=== PATIENT | female | born 1950 | race Hispanic/Latino ===

== ENCOUNTER 2017-01-11 11:56 | Emergency (ER) | payer MEDICARE, BC ==
[2017-01-11 12:04] VITALS: TEMP 98.8
[2017-01-11] MEDS ORDERED: Sodium Chloride 0.9% 500 ML IV STA (12:36)
[2017-01-11 12:42] VITALS: BMI 18.1
--- NOTE | 2017-01-11 12:42 | ED PDOC ---
Arrival/HPI - General Time Seen by Provider: 01/11/17 12:35 Historian: Patient - History of Present Illness Narrative History of Present Illness (Text): 01/11/17 12:30 Ofelia Smith is a 66 year old female whose past medical history includes emphysema, presents to the emergency department complaining of diffuse abdominal pain that began three days ago. She reports that she knows she has a hernia that she has elected to not repair. Symptoms are accompanied with diarrhea, nausea, and dysuria for one day. Patient denies chest pain, shortness of breath, fever, chills, cough, vomiting, hematuria, frequency, flank pain, or vaginal discharge. PMD: Dr. Gamez Time/Duration: < week (3 days ago) Symptom Onset: Sudden Symptom Course: Unchanged Associated Symptoms (Text): diarrhea, nausea, headache, and dysuria Past Medical History - Provider Review Nursing Documentation Reviewed: Yes - Infectious Disease Hx of Infectious Diseases: None - Cardiac Hx Pacemaker: No - Pulmonary Hx Chronic Obstructive Pulmonary Disease (COPD): Yes Hx Emphysema: Yes - Neurological Hx Paralysis: No - HEENT Hx HEENT Disorder: No - Renal Hx Renal Disorder: No - Endocrine/Metabolic Hx Endocrine Disorders: No - Hematological/Oncological Hx Blood Transfusions: No - Integumentary Hx Dermatological Disorder: No - Musculoskeletal/Rheumatological Hx Musculoskeletal Disorders: Yes Hx Falls: No - Gastrointestinal Hx Diverticulitis: Yes - Genitourinary/Gynecological Hx Genitourinary Disorders: No - Psychiatric Hx Depression: Yes Hx Emotional Abuse: No Hx Physical Abuse: No Hx Substance Use: No - Anesthesia Hx Anesthesia: Yes Hx Anesthesia Reactions: No Hx Malignant Hyperthermia: No - Suicidal Assessment Feels Threatened In Home Enviroment: No Family/Social History - Physician Review Nursing Documentation Reviewed: Yes Family/Social History: Unknown Family HX Smoking Status: Former Smoker Hx Alcohol Use: No Hx Substance Use: No Allergies/Home Meds Allergies/Adverse Reactions: Allergies No Known Allergies Allergy (Verified 12/20/14 09:30) Home Medications: Home Meds Medication Instructions Recorded Confirmed Desvenlafaxine Succinate [Pristiq] 50 mg PO DAILY 12/20/14 01/11/17 Donepezil HCl 5 mg PO DAILY 12/20/14 01/11/17 Montelukast [Singulair] 10 mg PO DAILY 12/20/14 01/11/17 Alprazolam [Xanax] 0.5 mg PO BID 03/07/16 01/11/17 amLODIPine [Norvasc] 10 mg PO DAILY 03/07/16 01/11/17 Fluticasone/Salmeterol [Advair 1 each IH BID 01/11/17 01/11/17 250-50 Diskus] Umeclidinium [place] [Incruse 62.5 mcg IH DAILY 01/11/17 01/11/17 Ellipta] Review of Systems - Review of Systems Constitutional: absent: Fevers Respiratory: absent: SOB, Cough Cardiovascular: absent: Chest Pain Gastrointestinal: Abdominal Pain, Diarrhea, Nausea. absent: Vomiting Genitourinary Female: Dysuria. absent: Hematuria, Vaginal Bleeding Musculoskeletal: absent: Back Pain Neurological: Headache. absent: Dizziness Physical Exam Vital Signs Reviewed: Yes Vital Signs Temp Pulse Resp BP Pulse Ox 01/11/17 16:06 76 12 122/53 L 96 01/11/17 14:00 77 28 H 105/73 94 L 01/11/17 12:10 76 19 106/73 94 L 01/11/17 12:03 98.8 F 82 18 106/73 100 Temperature: Afebrile Blood Pressure: Normal Pulse: Regular Respiratory Rate: Normal Appearance: Positive for: Well-Appearing, Non-Toxic, Comfortable Pain Distress: None Mental Status: Positive for: Alert and Oriented X 3 - Systems Exam Head: Present: Atraumatic, Normocephalic Pupils: Present: PERRL Extroacular Muscles: Present: EOMI Conjunctiva: Present: Normal Mouth: Present: Moist Mucous Membranes Neck: Present: Normal Range of Motion Respiratory/Chest: Present: Clear to Auscultation, Good Air Exchange. No: Respiratory Distress, Accessory Muscle Use Cardiovascular: Present: Regular Rate and Rhythm, Normal S1, S2. No: Murmurs Abdomen: Present: Normal Bowel Sounds. No: Tenderness, Distention, Peritoneal Signs Upper Extremity: Present: Normal Inspection. No: Cyanosis, Edema Lower Extremity: Present: Normal Inspection. No: Edema Neurological: Present: GCS=15, CN II-XII Intact, Speech Normal Skin: Present: Warm, Dry, Normal Color. No: Rashes Psychiatric: Present: Alert, Oriented x 3, Normal Insight, Normal Concentration Medical Decision Making ED Course and Treatment: 01/11/17 12:30 Impression: 66 year old female wtih diffused abdominal pain, diarrhea, nausea, and dysuria. Plan: -- Labs -- Urinalysis -- Toradol, Sodium Chloride, and Zofran -- Reassess and disposition Prior Visits: Notes and results from previous visits were reviewed. Patient was last seen in the emergency department on Progress Notes: 01/11/17 14:25 CT Abdomen and Pelvis with contrast: Creator : Dr. Irvin, Rob ALLEN COMPARISON: 06/24/2016 FINDINGS: LOWER THORAX: There is a large diaphragmatic hernia measuring 5.2 cm in with seen on coronal image 15. There is herniation of bowel loops into the right side of the chest. There is also a small amount of peritoneal fluid. This is unchanged. LIVER: Unremarkable. No gross lesion or ductal dilatation. GALLBLADDER AND BILE DUCTS: Unremarkable. PANCREAS: Unremarkable. No gross lesion or ductal dilatation. SPLEEN: Unremarkable. ADRENALS: Unremarkable. No mass. KIDNEYS AND URETERS: Unremarkable. No hydronephrosis. No solid mass. VASCULATURE: Unremarkable. No aortic aneurysm. BOWEL: There is some mural thickening and edema in the distal small bowel suspicious for enteritis or inflammatory bowel disease. There is no mesenteric inflammation. APPENDIX: Normal appendix. PERITONEUM: There is a small amount of ascites. LYMPH NODES: Unremarkable. No enlarged lymph nodes. BLADDER: Unremarkable. REPRODUCTIVE: Unremarkable. BONES: No acute fracture. OTHER FINDINGS: None. IMPRESSION: Large anterior right-sided diaphragmatic hernia containing loops of bowel without evidence of obstruction. Finding is unchanged. Mural thickening and edema in the small bowel consistent with enteritis or inflammatory bowel disease. 01/11/17 14:53 Cipro and flagyl ordered. Labs WNL. Reports persistent pain. 01/11/17 15:37 Patient is tolerating po, is afebrile and well appearing and reports that pain has resolved. She reports that she wants to go home. She was given detailed return instructions and reports that she will return with worsening symptoms. - Lab Interpretations Lab Results: 01/11/17 12:58 01/11/17 12:58 Lab Results 01/11/17 14:30: Urine Color Yellow, Urine Appearance Sl cloudy, Urine pH 7.0, Ur Specific [place] <= 1.005, Urine Protein Negative, Urine Glucose (UA) Negative, Urine Ketones Trace H, Urine Blood Moderate H, Urine Nitrate Negative , Urine Bilirubin Negative, Urine Urobilinogen 0.2, Ur Leukocyte Esterase Moderate H, Urine RBC 1 - 3, Urine WBC 1 - 3, Ur Epithelial Cells 1 - 3, Urine Bacteria Trace 01/11/17 12:58: PT 10.6, INR 0.98, APTT 26.5 01/11/17 12:58: Sodium 141, Potassium 3.7, Chloride 103, Carbon Dioxide 29, Anion Gap 13, BUN 14, Creatinine 1.1, Est GFR ( Amer) 60, Est GFR (Non- Af Amer) 49, Random Glucose 85, Calcium 9.5, Phosphorus 3.2, Magnesium 1.9, Total Bilirubin 1.6 H, AST 24, ALT 21, Alkaline Phosphatase 84, Total Protein 6.5, Albumin 3.9, Globulin 2.6, Albumin/Globulin Ratio 1.5, Lipase 39 01/11/17 12:58: WBC 5.3, RBC 4.90, Hgb 14.6, Hct 43.6, MCV 89.0, MCH 29.8, MCHC 33.5, RDW 13.6, Plt Count 217, MPV 9.4, Gran % 66.7, Lymph % (Auto) 24.5, [place] % (Auto) 6.4 H, Eos % (Auto) 1.3 L, Baso % (Auto) 1.1, Gran # 3.53, Lymph # 1.3 , [place] # 0.3, Eos # 0.1, Baso # 0.06 I have reviewed the lab results: Yes - RAD Interpretation Radiology Orders: 01/11/17 13:34 ABD & PELVIS IV CONTRAST ONLY [CT] Stat - Medication Orders Current Medication Orders: Discontinued Medications Ciprofloxacin (Cipro) 500 mg PO ONCE STA PRN Reason: Protocol Stop: 01/11/17 14:25 Last Admin: 01/11/17 14:55 Dose: 500 mg Sodium Chloride (Sodium Chloride 0.9%) 500 mls @ 999 mls/hr IV .Q31M STA Stop: 01/11/17 13:06 Last Admin: 01/11/17 13:09 Dose: 999 mls/hr Iohexol (Omnipaque 350 100 Ml) Confirm Administered Dose 350 mg .ROUTE .STK-MED ONE Stop: 01/11/17 13:41 Ketorolac Tromethamine (Toradol) 30 mg IVP STAT STA Stop: 01/11/17 12:37 Last Admin: 01/11/17 13:11 Dose: 30 mg Metronidazole (Flagyl) 500 mg PO STAT STA PRN Reason: Protocol Stop: 01/11/17 14:25 Last Admin: 01/11/17 14:56 Dose: 500 mg Morphine Sulfate (Morphine) 4 mg IVP STAT STA Stop: 01/11/17 14:47 Last Admin: 01/11/17 14:53 Dose: 4 mg Ondansetron HCl (Zofran Inj) 4 mg IVP STAT STA Stop: 01/11/17 12:37 Last Admin: 01/11/17 13:11 Dose: 4 mg - Scribe Statement The provider has reviewed the documentation as recorded by the Scribe 01/11/2017 Susan Sommers Provider Scribe Attestation: All medical record entries made by the Scribe were at my direction and personally dictated by me. I have reviewed the chart and agree that the record accurately reflects my personal performance of the history, physical exam, medical decision making, and the department course for this patient. I have also personally directed, reviewed, and agree with the discharge instructions and disposition. Disposition/Present on Arrival - Present on Arrival Any Indicators Present on Arrival: No History of DVT/PE: No History of Uncontrolled Diabetes: No Urinary Catheter: No History of Decub. Ulcer: No History Surgical Site Infection Following: None - Disposition Have Diagnosis and Disposition been Completed?: Yes Diagnosis: UTI (urinary tract infection), Enteritis, Inflammatory bowel disease Disposition: HOME/ ROUTINE Disposition Time: 15:37 Patient Plan: Discharge Condition: GOOD Discharge Instructions (ExitCare): Enteritis (ED) Additional Instructions: Take full course of antibiotics. Follow-up with your PMD within 2 days. Return to ED immediately with any worsening symptoms. Prescriptions: Ciprofloxacin [Cipro] 500 mg PO BID #20 tab Metronidazole [Flagyl] 500 mg PO TID #30 tab Referrals: Sanchez Lino MD [Primary Care Provider] - Follow up with primary Forms: [employer] ([place]vian)
[2017-01-11 13:10] LABS: BASO # 0.06 K/mm3 (0.0-2.0); BASO % 1.1 % (0.0-3.0); EOS # 0.1 (0.0-0.7); EOS % 1.3 % (1.5-5.0); GRAN # 3.53 (1.4-6.5); GRAN % 66.7 % (50.0-68.0); HEMATOCRIT 43.6 % (36.0-48.0); LYMPH # 1.3 (1.2-3.4); LYMPH % 24.5 % (22.0-35.0); MEAN CORPUSCULAR HEMOGLOBIN 29.8 pg (25.0-35.0); MEAN CORPUSCULAR HGB CONC 33.5 g/dl (31.0-37.0); MEAN PLATELET VOLUME 9.4 fl (7.0-11.0); MONO # 0.3 (0.1-0.6); MONO % 6.4 % (1.0-6.0); RED CELL DISTRIBUTION WIDTH 13.6 % (11.5-14.5); WHITE BLOOD COUNT 5.3 10^3/ul (4.5-11.0)
[2017-01-11 13:19] LABS: ALB/GLOB RATIO 1.5 (1.1-1.8); BILIRUBIN,TOTAL 1.6 mg/dL (0.2-1.3); CALCIUM 9.5 mg/dL (8.4-10.5); MAGNESIUM 1.9 mg/dL (1.7-2.2); PHOSPHOROUS 3.2 mg/dL (2.5-4.5); POTASSIUM 3.7 mmol/L (3.6-5.0); TOTAL PROTEIN 6.5 g/dL (5.8-8.3)
[2017-01-11 13:25] LABS: INR 0.98 (0.93-1.08); PARTIAL THROMBOPLASTIN TIME 26.5 Seconds (23.7-30.8)
[2017-01-11] MEDS ORDERED: Iohexol 350 MG/100 ML VIAL ONE (13:40)
--- NOTE | 2017-01-11 14:23 | CT ---
PROCEDURE: CT Abdomen and Pelvis with contrast HISTORY: abdominal pain COMPARISON: 06/24/2016 TECHNIQUE: Contrast dose: 100 cc of Omni 350 Radiation dose: Total exam DLP = 171 mGy-cm. This CT exam was performed using one or more of the following dose reduction techniques: Automated exposure control, adjustment of the mA and/or kV according to patient size, and/or use of iterative reconstruction technique. FINDINGS: LOWER THORAX: There is a large diaphragmatic hernia measuring 5.2 cm in with seen on coronal image 15. There is herniation of bowel loops into the right side of the chest. There is also a small amount of peritoneal fluid. This is unchanged. LIVER: Unremarkable. No gross lesion or ductal dilatation. GALLBLADDER AND BILE DUCTS: Unremarkable. PANCREAS: Unremarkable. No gross lesion or ductal dilatation. SPLEEN: Unremarkable. ADRENALS: Unremarkable. No mass. KIDNEYS AND URETERS: Unremarkable. No hydronephrosis. No solid mass. VASCULATURE: Unremarkable. No aortic aneurysm. BOWEL: There is some mural thickening and edema in the distal small bowel suspicious for enteritis or inflammatory bowel disease. There is no mesenteric inflammation. APPENDIX: Normal appendix. PERITONEUM: There is a small amount of ascites. LYMPH NODES: Unremarkable. No enlarged lymph nodes. BLADDER: Unremarkable. REPRODUCTIVE: Unremarkable. BONES: No acute fracture. OTHER FINDINGS: None. IMPRESSION: Large anterior right-sided diaphragmatic hernia containing loops of bowel without evidence of obstruction. Finding is unchanged. Mural thickening and edema in the small bowel consistent with enteritis or inflammatory bowel disease.
[2017-01-11] MEDS ORDERED: Morphine 4 mg/ml ISec IVP STA (14:46)
[2017-01-11 14:55] LABS: URINE APPEARANCE SL CLOUDY (CLEAR); URINE BILIRUBIN NEGATIVE (NEGATIVE); URINE BLOOD MODERATE (NEGATIVE); URINE COLOR YELLOW (YELLOW); URINE GLUCOSE (UA) NEGATIVE (NEGATIVE); URINE KETONE TRACE mg/dL (NEGATIVE); URINE LEUKOCYTE ESTERASE MODERATE Leu/uL (NEGATIVE); URINE PROTEIN NEGATIVE mg/dL (<30 mg/dL); URINE UROBILINOGEN 0.2 E.U./dL (<1 E.U./dL)
[2017-01-11 15:08] LABS: URINE BACTERIA TRACE (NEG)
[2017-01-11 16:07] VITALS: BP 122/53; PULSE 76; RESP 12; O2SAT 96
== END 2017-01-11 16:17 | disposition home or self-care (01) ==
LOC: ED 11:56
DX: K52.9 Noninfective gastroenteritis and colitis, unspecified (principal); N39.0 Urinary tract infection, site not specified
CPT/HCPCS: 74177; 80053; 81001; 83690; 83735; 84100; 85025; 85610; 85730; 87086; 96374; 96375; 99284; J1885; J2270; J2405; J7040; Q9967

== ENCOUNTER 2017-01-15 16:37 | Emergency (ER) | payer MEDICARE, BC ==
[2017-01-15 16:38] VITALS: BMI 18.1
[2017-01-15] MEDS ORDERED: Sodium Chloride 0.9% 500 ML IV STA (16:58)
--- NOTE | 2017-01-15 17:02 | ED PDOC ---
Arrival/HPI - General Chief Complaint: GI Problem Time Seen by Provider: 01/15/17 16:40 Historian: Patient - History of Present Illness Time/Duration: Other (Last night) Symptom Onset: Sudden Symptom Course: Unchanged Severity Level: Mild Associated Symptoms (Text): 01/15/17 16:59 Patient complains of diarrhea which began last night. No blood. No abdominal pain nausea or vomiting. Patient was seen in the emergency department 4 days ago for abdominal pain nausea vomiting and diarrhea and she had a CT scan at that time which showed a chronic hernia and small bowel inflammation. She was begun on Cipro and Flagyl. Her abdominal pain nausea vomiting and diarrhea completely resolved. The diarrhea began again last night. She no longer has abdominal pain nausea vomiting. No genitourinary symptoms. No fever or chills. No injury or trauma. She is chronically ill-appearing, but not toxic. She has continued to take her MiraLAX twice daily. Past Medical History - Infectious Disease Hx of Infectious Diseases: None - Reproductive Menopause: Yes - Cardiac Hx Pacemaker: No - Pulmonary Hx Chronic Obstructive Pulmonary Disease (COPD): Yes Hx Emphysema: Yes - Neurological Hx Paralysis: No - HEENT Hx HEENT Disorder: No - Renal Hx Renal Disorder: No - Endocrine/Metabolic Hx Endocrine Disorders: No - Hematological/Oncological Hx Blood Transfusions: No - Integumentary Hx Dermatological Disorder: No - Musculoskeletal/Rheumatological Hx Musculoskeletal Disorders: Yes Hx Falls: No - Gastrointestinal Hx Diverticulitis: Yes - Genitourinary/Gynecological Hx Genitourinary Disorders: No - Psychiatric Hx Depression: Yes Hx Emotional Abuse: No Hx Physical Abuse: No Hx Substance Use: No - Anesthesia Hx Anesthesia: Yes Hx Anesthesia Reactions: No Hx Malignant Hyperthermia: No - Suicidal Assessment Feels Threatened In Home Enviroment: No Family/Social History - Physician Review Nursing Documentation Reviewed: Yes Family/Social History: Unknown Family HX Smoking Status: Former Smoker Hx Alcohol Use: No Hx Substance Use: No Allergies/Home Meds Allergies/Adverse Reactions: Allergies No Known Allergies Allergy (Verified 12/20/14 09:30) Home Medications: Home Meds Medication Instructions Recorded Confirmed Desvenlafaxine Succinate [Pristiq] 50 mg PO DAILY 12/20/14 01/15/17 Donepezil HCl 5 mg PO DAILY 12/20/14 01/15/17 Montelukast [Singulair] 10 mg PO DAILY 12/20/14 01/15/17 Alprazolam [Xanax] 0.5 mg PO BID 03/07/16 01/15/17 amLODIPine [Norvasc] 10 mg PO DAILY 03/07/16 01/15/17 Fluticasone/Salmeterol [Advair 1 each IH BID 01/11/17 01/15/17 250-50 Diskus] Umeclidinium [place] [Incruse 62.5 mcg IH DAILY 01/11/17 01/15/17 Ellipta] Review of Systems - Physician Review All systems were reviewed & negative as marked: Yes - Review of Systems Constitutional: absent: Fatigue, Fevers Respiratory: Normal Cardiovascular: Normal Gastrointestinal: Normal, Diarrhea. absent: Abdominal Pain, Constipation, Nausea, Vomiting, Anorexia Genitourinary Female: absent: Dysuria, Frequency, Hematuria Skin: Normal Neurological: Normal Physical Exam Vital Signs Temp Pulse Resp BP Pulse Ox 01/15/17 16:39 98.8 F 55 L 16 141/88 97 Temperature: Afebrile Blood Pressure: Normal Pulse: Regular Respiratory Rate: Normal Appearance: Positive for: Well-Appearing, Non-Toxic, Comfortable, Other ( Chronically ill-appearing) Pain Distress: None Mental Status: Positive for: Alert and Oriented X 3 - Systems Exam Head: Present: Atraumatic, Normocephalic Pupils: Present: PERRL Extroacular Muscles: Present: EOMI Conjunctiva: Present: Normal Mouth: Present: Moist Mucous Membranes Pharnyx: No: ERYTHEMA, EXUDATE, TONSILS ENLARGED Neck: Present: Normal Range of Motion Respiratory/Chest: Present: Clear to Auscultation, Good Air Exchange, Decreased Breath Sounds. No: Respiratory Distress, Accessory Muscle Use Cardiovascular: Present: Regular Rate and Rhythm, Normal S1, S2. No: Murmurs Abdomen: Present: Normal Bowel Sounds, Scars. No: Tenderness, Distention, Peritoneal Signs, Rebound, Guarding Upper Extremity: Present: Normal Inspection. No: Cyanosis, Edema Lower Extremity: Present: Normal Inspection. No: Edema Neurological: Present: GCS=15, CN II-XII Intact, Speech Normal, Motor Func Grossly Intact Skin: Present: Warm, Dry, Normal Color. No: Rashes Psychiatric: Present: Alert, Oriented x 3, Normal Insight, Normal Concentration Medical Decision Making - Lab Interpretations Lab Results: 01/15/17 17:11 01/15/17 17:11 Lab Results 01/15/17 17:11: Sodium 137, Potassium 3.4 L, Chloride 98, Carbon Dioxide 27, Anion Gap 15, BUN 9, Creatinine 0.9, Est GFR ( Amer) > 60, Est GFR (Non- Af Amer) > 60, Random Glucose 100, Calcium 9.7, Total Bilirubin 1.0, AST 33, ALT 30, Alkaline Phosphatase 85, Total Protein 7.0, Albumin 4.5, Globulin 2.5, Albumin/Globulin Ratio 1.8 01/15/17 17:11: Urine Color Yellow, Urine Appearance Clear, Urine pH 6.5, Ur Specific [place] 1.015, Urine Protein Negative, Urine Glucose (UA) Negative, Urine Ketones Negative, Urine Blood Small H, Urine Nitrate Negative, Urine Bilirubin Negative, Urine Urobilinogen 0.2, Ur Leukocyte Esterase Negative, Urine RBC 2 - 5, Urine WBC 0 - 2, Ur Epithelial Cells 1 - 3, Urine Bacteria Few , Urine Other Fiber 01/15/17 17:11: PT 10.8, INR 1.00, APTT 25.6 01/15/17 17:11: WBC 5.5, RBC 4.38, Hgb 13.0, Hct 38.7, MCV 88.4, MCH 29.7, MCHC 33.6, RDW 13.0, Plt Count 219, MPV 9.6, Gran % 70.4 H, Lymph % (Auto) 21.9 L, [place] % (Auto) 6.0, Eos % (Auto) 0.4 L, Baso % (Auto) 1.3, Gran # 3.86, Lymph # 1.2, [place] # 0.3, Eos # 0.0, Baso # 0.07 - Medication Orders Current Medication Orders: Discontinued Medications Sodium Chloride (Sodium Chloride 0.9%) 500 mls @ 1,000 mls/hr IV .Q30M STA Stop: 01/15/17 17:27 Last Admin: 01/15/17 17:21 Dose: 1,000 mls/hr Disposition/Present on Arrival - Present on Arrival Any Indicators Present on Arrival: No History of DVT/PE: No History of Uncontrolled Diabetes: No Urinary Catheter: No History of Decub. Ulcer: No History Surgical Site Infection Following: None - Disposition Have Diagnosis and Disposition been Completed?: Yes Diagnosis: Diarrhea, Colitis Disposition: HOME/ ROUTINE Disposition Time: 18:11 Patient Plan: Discharge Condition: GOOD Discharge Instructions (ExitCare): Acute Diarrhea (ED) Additional Instructions: Increase fluids. Follow-up with PMD. Follow up in ER as needed. Referrals: Sanchez Lino MD [Primary Care Provider] - Follow up with primary Forms: [employer] ([place]rainian)
[2017-01-15 17:21] LABS: BASO # 0.07 K/mm3 (0.0-2.0); BASO % 1.3 % (0.0-3.0); EOS % 0.4 % (1.5-5.0); GRAN # 3.86 (1.4-6.5); GRAN % 70.4 % (50.0-68.0); HEMATOCRIT 38.7 % (36.0-48.0); LYMPH # 1.2 (1.2-3.4); LYMPH % 21.9 % (22.0-35.0); MEAN CELL VOLUME 88.4 fl (80.0-105.0); MEAN CORPUSCULAR HEMOGLOBIN 29.7 pg (25.0-35.0); MEAN CORPUSCULAR HGB CONC 33.6 g/dl (31.0-37.0); MEAN PLATELET VOLUME 9.6 fl (7.0-11.0); MONO # 0.3 (0.1-0.6); PH,URINE 6.5 (4.7-8.0); URINE BILIRUBIN NEGATIVE (NEGATIVE); URINE BLOOD SMALL (NEGATIVE); URINE GLUCOSE (UA) NEGATIVE (NEGATIVE); URINE KETONE NEGATIVE (NEGATIVE); URINE LEUKOCYTE ESTERASE NEGATIVE Leu/uL (NEGATIVE); URINE PROTEIN NEGATIVE mg/dL (<30 mg/dL); URINE UROBILINOGEN 0.2 E.U./dL (<1 E.U./dL); WHITE BLOOD COUNT 5.5 10^3/ul (4.5-11.0)
[2017-01-15 17:22] LABS: URINE APPEARANCE CLEAR (CLEAR); URINE COLOR YELLOW (YELLOW)
[2017-01-15 17:24] LABS: URINE BACTERIA FEW (NEG); URINE WBC 0 - 2 /hpf (0-6)
[2017-01-15 17:33] LABS: ALB/GLOB RATIO 1.8 (1.1-1.8); ALKALINE PHOSPHATASE 85 U/L (38-126); ALT/SGPT 30 U/L (7-56); AST/SGOT 33 U/L (14-36); BLOOD UREA NITROGEN 9 mg/dL (7-21); CALCIUM 9.7 mg/dL (8.4-10.5); CARBON DIOXIDE 27 mmol/L (21-33); CHLORIDE 98 mmol/L (98-107); GFR AFRICAN-AMERICAN > 60; GLUCOSE,RANDOM 100 mg/dL (70-110); PARTIAL THROMBOPLASTIN TIME 25.6 Seconds (23.7-30.8); POTASSIUM 3.4 mmol/L (3.6-5.0); SODIUM 137 mmol/L (132-148)
[2017-01-15] MEDS ORDERED: Potassium Chloride 10 mEq ER Tab PO STA (18:10)
[2017-01-15 18:22] VITALS: BP 139/73; PULSE 60; RESP 18; TEMP 98.2; O2SAT 98
== END 2017-01-15 18:22 | disposition home or self-care (01) ==
LOC: ED 16:37
DX: K52.9 Noninfective gastroenteritis and colitis, unspecified (principal); R19.7 Diarrhea, unspecified
CPT/HCPCS: 80053; 81001; 85025; 85610; 85730; 99284; J7040

== ENCOUNTER 2017-02-09 09:00 | Emergency (ER) | payer MEDICARE, BC ==
[2017-02-09 09:00] VITALS: BMI 18.1
[2017-02-09 09:17] VITALS: TEMP 98
--- NOTE | 2017-02-09 09:32 | ED PDOC ---
Arrival/HPI - General Chief Complaint: Abnormal Skin Integrity Time Seen by Provider: 02/09/17 09:14 Historian: Patient - History of Present Illness Narrative History of Present Illness (Text): 02/09/17 09:28 A 66 year old female, whose past medical history includes enteritis, colitis, inflammatory bowel disease, and UTI, presents to the emergency department for bloody diarrhea bowel movement, which occurred earlier this morning after waking up. The patient reports she has had hemorrhoids for the past couple of weeks, but now they have started to bleed. The patient deneis any body pain, abdominal pain, nausea, vomiting, dysuria, chest pain, chest palpitations, or any other complaints at this time.The patient admits to quitting smoking 15 years ago and denies any etoh use. Time/Duration: 4-6 hours Symptom Onset: Sudden Symptom Course: Unchanged Activities at Onset: Rest, Light Context: Home Associated Symptoms (Text): 02/09/17 09:53 Patient complains of a two-week history of hemorrhoids. She had some diarrhea this morning which is chronic in nature. The diarrhea was bloody. No abdominal pain nausea or vomiting. No rectal pain. No dizziness or lightheadedness. No chest pain palpitations or dyspnea. Past Medical History - Provider Review Nursing Documentation Reviewed: Yes - Infectious Disease Hx of Infectious Diseases: None - Cardiac Hx Pacemaker: No - Pulmonary Hx Chronic Obstructive Pulmonary Disease (COPD): Yes Hx Emphysema: Yes - Neurological Hx Paralysis: No - HEENT Hx HEENT Disorder: No - Renal Hx Renal Disorder: No - Endocrine/Metabolic Hx Endocrine Disorders: No - Hematological/Oncological Hx Blood Transfusions: No - Integumentary Hx Dermatological Disorder: No - Musculoskeletal/Rheumatological Hx Musculoskeletal Disorders: Yes Hx Falls: No - Gastrointestinal Hx Diverticulitis: Yes - Genitourinary/Gynecological Hx Genitourinary Disorders: No - Psychiatric Hx Depression: Yes Hx Emotional Abuse: No Hx Physical Abuse: No Hx Substance Use: No - Anesthesia Hx Anesthesia: Yes Hx Anesthesia Reactions: No Hx Malignant Hyperthermia: No - Suicidal Assessment Feels Threatened In Home Enviroment: No Family/Social History - Physician Review Nursing Documentation Reviewed: Yes Family/Social History: No Known Family HX Smoking Status: Former Smoker Hx Alcohol Use: No Hx Substance Use: No Allergies/Home Meds Allergies/Adverse Reactions: Allergies No Known Allergies Allergy (Verified 12/20/14 09:30) Home Medications: Home Meds Medication Instructions Recorded Confirmed Desvenlafaxine Succinate [Pristiq] 50 mg PO DAILY 12/20/14 01/15/17 Donepezil HCl 5 mg PO DAILY 12/20/14 01/15/17 Montelukast [Singulair] 10 mg PO DAILY 12/20/14 01/15/17 Alprazolam [Xanax] 0.5 mg PO BID 03/07/16 01/15/17 amLODIPine [Norvasc] 10 mg PO DAILY 03/07/16 01/15/17 Fluticasone/Salmeterol [Advair 1 each IH BID 01/11/17 01/15/17 250-50 Diskus] Umeclidinium [place] [Incruse 62.5 mcg IH DAILY 01/11/17 01/15/17 Ellipta] Review of Systems - Physician Review All systems were reviewed & negative as marked: Yes - Review of Systems Constitutional: absent: Fatigue, Fevers Respiratory: absent: SOB, Cough, Wheezing Cardiovascular: absent: Chest Pain, Palpitations Gastrointestinal: Diarrhea (bloody ). absent: Abdominal Pain, Nausea, Vomiting Genitourinary Female: absent: Dysuria Musculoskeletal: absent: Back Pain, Neck Pain Neurological: absent: Headache, Dizziness, Focal Weakness Physical Exam Vital Signs Reviewed: Yes Vital Signs Temp Pulse Resp BP Pulse Ox 02/09/17 10:49 80 20 115/69 02/09/17 10:15 84 20 115/69 94 L 02/09/17 09:00 98.0 F 84 18 138/69 96 Temperature: Afebrile Blood Pressure: Normal Pulse: Regular Respiratory Rate: Normal Appearance: Positive for: Well-Appearing, Non-Toxic, Comfortable, Other ( Cachectic) Pain Distress: None Mental Status: Positive for: Alert and Oriented X 3 - Systems Exam Head: Present: Atraumatic, Normocephalic Pupils: Present: PERRL Extroacular Muscles: Present: EOMI Conjunctiva: Present: Normal Mouth: Present: Moist Mucous Membranes Pharnyx: No: ERYTHEMA, EXUDATE, TONSILS ENLARGED Neck: Present: Normal Range of Motion Respiratory/Chest: Present: Clear to Auscultation, Good Air Exchange. No: Respiratory Distress, Accessory Muscle Use Cardiovascular: Present: Regular Rate and Rhythm, Normal S1, S2. No: Murmurs Abdomen: Present: Normal Bowel Sounds. No: Tenderness, Distention, Peritoneal Signs, Rebound, Guarding Rectal: Present: Occult Blood, Hemorrhoids (small external non-thrombosed hemorrhoids), Normal Rectal Tone, Other (trace guaiac positive). No: Rectal Tenderness, Gross Blood, Melena, Fissures, Nodule/Mass/Lesions Back: Present: Normal Inspection Upper Extremity: Present: Normal Inspection. No: Cyanosis, Edema Lower Extremity: Present: Normal Inspection. No: Edema Neurological: Present: GCS=15, CN II-XII Intact, Speech Normal, Motor Func Grossly Intact Skin: Present: Warm, Dry, Normal Color. No: Rashes Psychiatric: Present: Alert, Oriented x 3, Normal Insight, Normal Concentration Medical Decision Making ED Course and Treatment: 02/09/17 09:33 Impression: A 66 year old female with bloody diarrhea. Differential Diagnosis included but are not limited to: Plan: -- EKG -- Labs -- Reassess and disposition Progress Notes: 02/09/17 10:12 EKG shows normal sinus rhythm rate approximately 80 with multifocal PVCs and no acute ST or T-wave changes 02/09/17 10:36 Discussed in detail with , who will follow up as an outpatient. Patient's hemoglobin is fine. Her INR is normal. I believe that this bleeding is from her hemorrhoids. She will be treated with Anusol and follow-up with Dr. Lino in 2 days. Follow-up in the ER as needed. - Lab Interpretations Lab Results: 02/09/17 09:45 02/09/17 09:45 Lab Results 02/09/17 09:45: Blood Type O POSITIVE, Antibody Screen Negative, BBK History Checked No verified bt 02/09/17 09:45: Sodium 144, Potassium 3.8, Chloride 105, Carbon Dioxide 28, Anion Gap 15, BUN 10, Creatinine 0.9, Est GFR ( Amer) > 60, Est GFR (Non- Af Amer) > 60, Random Glucose 72, Calcium 9.7, Total Bilirubin 1.0, AST 25, ALT 22, Alkaline Phosphatase 81, Lactate Dehydrogenase 603, Total Creatine Kinase 88 , Troponin I < 0.01, Total Protein 6.6, Albumin 4.0, Globulin 2.7, Albumin/ Globulin Ratio 1.5, Amylase 107, Lipase 135 02/09/17 09:45: PT 10.4, INR 0.96, APTT 26.8 02/09/17 09:45: WBC 6.2, RBC 4.78, Hgb 14.1, Hct 42.2, MCV 88.3, MCH 29.5, MCHC 33.4, RDW 13.8, Plt Count 300, MPV 9.4, Gran % 61.3, Lymph % (Auto) 20.0 L, [place] % (Auto) 7.8 H, Eos % (Auto) 9.4 H, Baso % (Auto) 1.5, Gran # 3.80, Lymph # 1.2, [place] # 0.5, Eos # 0.6, Baso # 0.09 - Scribe Statement The provider has reviewed the documentation as recorded by the Scribe Taniya Acharya Provider Scribe Attestation: All medical record entries made by the Scribe were at my direction and personally dictated by me. I have reviewed the chart and agree that the record accurately reflects my personal performance of the history, physical exam, medical decision making, and the department course for this patient. I have also personally directed, reviewed, and agree with the discharge instructions and disposition. Disposition/Present on Arrival - Present on Arrival Any Indicators Present on Arrival: No History of DVT/PE: No History of Uncontrolled Diabetes: No Urinary Catheter: No History of Decub. Ulcer: No History Surgical Site Infection Following: None - Disposition Have Diagnosis and Disposition been Completed?: Yes Diagnosis: Diarrhea, Bleeding external hemorrhoids Disposition: HOME/ ROUTINE Disposition Time: 10:37 Patient Plan: Discharge Condition: GOOD Discharge Instructions (ExitCare): Hemorrhoids (ED), Rectal Bleeding (ED) Additional Instructions: Keep bowels soft. Follow-up with PMD. Follow up in ER as needed. Prescriptions: Hard Fat/Phenylephrine [place] [Hemorrhoidal 88.7%-0.25%] 1 sup TN BID #14 sup Hydrocortisone 2.5% (Rectal) [Anusol-HC] 30 applic TN BID #1 tube Referrals: PCP,NO [Primary Care Provider] - Follow up with primary Sanchez Lino MD [Staff Provider] - Follow up with primary Forms: [employer] (Kyrgyz)
[2017-02-09 10:04] LABS: BASO # 0.09 K/mm3 (0.0-2.0); BASO % 1.5 % (0.0-3.0); EOS # 0.6 (0.0-0.7); EOS % 9.4 % (1.5-5.0); GRAN # 3.8 (1.4-6.5); GRAN % 61.3 % (50.0-68.0); HEMATOCRIT 42.2 % (36.0-48.0); LYMPH # 1.2 (1.2-3.4); MEAN CELL VOLUME 88.3 fl (80.0-105.0); MEAN CORPUSCULAR HEMOGLOBIN 29.5 pg (25.0-35.0); MEAN CORPUSCULAR HGB CONC 33.4 g/dl (31.0-37.0); MEAN PLATELET VOLUME 9.4 fl (7.0-11.0); MONO # 0.5 (0.1-0.6); MONO % 7.8 % (1.0-6.0); RED CELL DISTRIBUTION WIDTH 13.8 % (11.5-14.5); WHITE BLOOD COUNT 6.2 10^3/ul (4.5-11.0)
[2017-02-09 10:14] LABS: ALB/GLOB RATIO 1.5 (1.1-1.8); ALKALINE PHOSPHATASE 81 U/L (38-126); ALT/SGPT 22 U/L (7-56); AMYLASE 107 U/L (35-125); AST/SGOT 25 U/L (14-36); BLOOD UREA NITROGEN 10 mg/dL (7-21); CALCIUM 9.7 mg/dL (8.4-10.5); CARBON DIOXIDE 28 mmol/L (21-33); CHLORIDE 105 mmol/L (98-107); GFR AFRICAN-AMERICAN > 60; GLUCOSE,RANDOM 72 mg/dL (70-110); INR 0.96 (0.93-1.08); LIPASE 135 U/L (23-300); PARTIAL THROMBOPLASTIN TIME 26.8 Seconds (23.7-30.8); POTASSIUM 3.8 mmol/L (3.6-5.0); SODIUM 144 mmol/L (132-148); TOTAL PROTEIN 6.6 g/dL (5.8-8.3)
[2017-02-09 10:21] VITALS: BP 115/69; RESP 20; O2SAT 94
[2017-02-09 10:26] LABS: TROPONIN I < 0.01 ng/mL
[2017-02-09 10:50] VITALS: PULSE 80
--- NOTE | 2017-02-09 14:28 | CARD ---
APPROVED REPORT EKG Measurement Heart [id number] <Conclusion> Sinus rhythm with frequent premature ventricular complexes Nonspecific ST and T wave abnormality
== END 2017-02-09 10:55 | disposition home or self-care (01) ==
LOC: ED 09:00
DX: K64.4 Residual hemorrhoidal skin tags (principal); R19.7 Diarrhea, unspecified

== ENCOUNTER 2017-02-11 17:22 | Inpatient (IN) | payer MEDICARE, BC ==
--- NOTE | 2017-02-11 17:47 | ED PDOC ---
Arrival/HPI - General Chief Complaint: Altered Mental Status Time Seen by Provider: 02/11/17 17:26 Historian: Patient, Family - History of Present Illness Narrative History of Present Illness (Text): 02/11/17 17:46 A 66 year old female was brought into the emergency department by family for altered mental status. Family complains of increased confusion and agitation. Granddaughter reports when she arrived home patient was naked trying to put on a trash bag and notes she urinated and defecated on the floor. She states she could not make sense of what the patient was trying to say. Patient denies any complaints at this time. ROS limited due to patients state. Time/Duration: Prior to Arrival Context: Home Past Medical History - Provider Review Nursing Documentation Reviewed: Yes - Infectious Disease Hx of Infectious Diseases: None - Cardiac Hx Cardiac Disorders: Yes Hx Hypertension: Yes Hx Pacemaker: No - Pulmonary Hx Respiratory Disorders: Yes Hx Chronic Obstructive Pulmonary Disease (COPD): Yes Hx Emphysema: Yes - Neurological Hx Neurological Disorder: Yes Hx Dementia: Yes Hx Paralysis: No - HEENT Hx HEENT Disorder: No - Renal Hx Renal Disorder: No - Endocrine/Metabolic Hx Endocrine Disorders: No - Hematological/Oncological Hx Blood Transfusions: No - Integumentary Hx Dermatological Disorder: No - Musculoskeletal/Rheumatological Hx Musculoskeletal Disorders: Yes Hx Falls: No - Gastrointestinal Hx Gastrointestinal Disorders: Yes Hx Diverticulitis: Yes - Genitourinary/Gynecological Hx Genitourinary Disorders: No - Psychiatric Hx Psychophysiologic Disorder: Yes Hx Anxiety: Yes Hx Depression: Yes Hx Emotional Abuse: No Hx Physical Abuse: No Hx Substance Use: No - Anesthesia Hx Anesthesia: Yes Hx Anesthesia Reactions: No Hx Malignant Hyperthermia: No - Suicidal Assessment Feels Threatened In Home Enviroment: No Family/Social History - Physician Review Nursing Documentation Reviewed: Yes Family/Social History: No Known Family HX Smoking Status: Former Smoker Hx Alcohol Use: No Hx Substance Use: No Allergies/Home Meds Allergies/Adverse Reactions: Allergies No Known Allergies Allergy (Verified 02/11/17 17:40) Home Medications: Home Meds Medication Instructions Recorded Confirmed Donepezil HCl 5 mg PO DAILY 12/20/14 02/11/17 Montelukast [Singulair] 10 mg PO DAILY 12/20/14 02/11/17 Alprazolam [Xanax] 0.5 mg PO BID 03/07/16 02/11/17 amLODIPine [Norvasc] 10 mg PO DAILY 03/07/16 02/11/17 Alprazolam [Xanax] 1 tab PO HS PRN 02/11/17 02/11/17 Desvenlafaxine Succinate [Pristiq] 50 mg PO DAILY 02/11/17 02/11/17 Review of Systems - Review of Systems Systems not reviewed;Unavailable: Altered Mental Status Physical Exam Vital Signs Reviewed: Yes Vital Signs Temp Pulse Resp BP Pulse Ox 02/11/17 20:26 81 18 116/66 96 02/11/17 17:50 99.4 F 89 18 115/45 L 96 Temperature: Afebrile Blood Pressure: Normal Pulse: Regular Respiratory Rate: Normal Appearance: Positive for: Non-Toxic, Comfortable, Cachectic Pain Distress: None Mental Status: Positive for: Confused (Alert and oriented times person and place only) - Systems Exam Head: Present: Atraumatic, Normocephalic Pupils: Present: PERRL Extroacular Muscles: Present: EOMI Conjunctiva: Present: Normal Mouth: Present: Moist Mucous Membranes Neck: Present: Normal Range of Motion Respiratory/Chest: Present: Clear to Auscultation, Good Air Exchange. No: Respiratory Distress, Accessory Muscle Use Cardiovascular: Present: Regular Rate and Rhythm, Normal S1, S2. No: Murmurs Abdomen: Present: Normal Bowel Sounds. No: Tenderness, Distention, Peritoneal Signs Back: Present: Normal Inspection Upper Extremity: Present: Normal Inspection. No: Cyanosis, Edema Lower Extremity: Present: Normal Inspection. No: Edema Neurological: Present: GCS=15, CN II-XII Intact, Speech Normal Skin: Present: Warm, Dry, Normal Color. No: Rashes Psychiatric: Present: Alert. No: Oriented x 3 (Oriented times person and place only, not time) Medical Decision Making ED Course and Treatment: 02/11/17 17:46 Impression: A 66 year old female brought in for altered mental status Plan: -- Head CT -- Chest xray -- EKG -- Labs -- Blood and Urine culture -- Urinalysis -- Reassess and disposition Progress Notes: EKG shows NSR at [address] changes, unchanged from prior on . Interpreted by me. Report date: 02/11/17 20:50 EXAM: CT Head Without Intravenous Contrast Dictated and Authenticated by: Griselda Humphrey MD IMPRESSION: No CT evidence of acute intracranial abnormality. Chronic changes as above. Acute infarcts/early ischemic changes may not be detectable by this modality; MRI is more sensitive in detecting acute ischemia. 02/11/17 20:52 Cxray shows R diaphragmatic hernia. Labs show low potassium which was replaced. Otherwise grossly normal. UA shows small leukocytes. Ucx ordered with antibiotics. 02/11/17 22:17 Psych evaluated and report that she is acutely delirious and they do not accept patient. Will admit medically with psych on consult. - Lab Interpretations Lab Results: 02/11/17 18:46 02/11/17 18:46 Lab Results 02/11/17 19:00: Urine Opiates Screen Negative, Urine Methadone Screen Negative, Ur Barbiturates Screen Negative, Ur Phencyclidine Scrn Negative, Ur Amphetamines Screen Negative, U Benzodiazepines Scrn Positive, U Oth Cocaine Metabols Negative, U Cannabinoids Screen Negative 02/11/17 19:00: Urine Color Yellow, Urine Appearance Sl cloudy, Urine pH 6.0, Ur Specific [place] 1.020, Urine Protein Trace H, Urine Glucose (UA) Negative, Urine Ketones 15 H, Urine Blood Trace-intact H, Urine Nitrate Negative, Urine Bilirubin Moderate H, Urine Urobilinogen 0.2, Ur Leukocyte Esterase Small H, Urine RBC 0 - 2, Urine WBC 5 - 10, Hyaline Casts 2 - 5 02/11/17 18:46: Sodium 143, Potassium 3.0 L, Chloride 105, Carbon Dioxide 25, Anion Gap 16, BUN 24 H, Creatinine 1.4, Est GFR ( Amer) 45, Est GFR (Non- Af Amer) 37, Random Glucose 123 H, Calcium 9.4, Phosphorus 5.5 H, Magnesium 2.2 , Total Bilirubin 1.1, AST 25, ALT 14, Alkaline Phosphatase 71, Total Creatine Kinase 109, Troponin I < 0.01, Total Protein 6.3, Albumin 3.8, Globulin 2.5, Albumin/Globulin Ratio 1.5 02/11/17 18:46: PT 10.8, INR 1.00, APTT 23.9 02/11/17 18:46: WBC 11.0 D, RBC 4.20, Hgb 12.3, Hct 36.4, MCV 86.7, MCH 29.3, MCHC 33.8, RDW 13.9, Plt Count 328, MPV 9.5, Gran % 87.8 H, Lymph % (Auto) 8.1 L , [place] % (Auto) 3.7, Eos % (Auto) 0.0 L, Baso % (Auto) 0.4, Gran # 9.68 H, Lymph # 0.9 L, [place] # 0.4, Eos # 0.0, Baso # 0.04 02/11/17 17:44: POC Glucose (mg/dL) 147 H I have reviewed the lab results: Yes - RAD Interpretation Radiology Orders: 02/11/17 17:51 HEAD W/O CONTRAST [CT] Stat CHEST PORTABLE [RAD] Stat - Medication Orders Current Medication Orders: Discontinued Medications Cephalexin Monohydrate (Keflex) 500 mg PO STAT STA PRN Reason: Protocol Stop: 02/11/17 21:02 Last Admin: 02/11/17 21:27 Dose: 500 mg Potassium Chloride (K-Dur 20 Meq Er Tab) 40 meq PO STAT STA Stop: 02/11/17 20:09 Last Admin: 02/11/17 20:18 Dose: 40 meq - Scribe Statement The provider has reviewed the documentation as recorded by the Sergio Mensah Provider Scribe Attestation: All medical record entries made by the Scribadry were at my direction and personally dictated by me. I have reviewed the chart and agree that the record accurately reflects my personal performance of the history, physical exam, medical decision making, and the department course for this patient. I have also personally directed, reviewed, and agree with the discharge instructions and disposition. Disposition/Present on Arrival - Present on Arrival Any Indicators Present on Arrival: No History of DVT/PE: No History of Uncontrolled Diabetes: No Urinary Catheter: No History of Decub. Ulcer: No History Surgical Site Infection Following: None - Disposition Have Diagnosis and Disposition been Completed?: Yes Diagnosis: UTI (urinary tract infection), Delirium Disposition: HOSPITALIZED Disposition Time: 22:18 Patient Plan: Admission Condition: FAIR Forms: [employer] (Frisian)
[2017-02-11 19:04] LABS: BASO # 0.04 K/mm3 (0.0-2.0); BASO % 0.4 % (0.0-3.0); GRAN # 9.68 (1.4-6.5); GRAN % 87.8 % (50.0-68.0); HEMATOCRIT 36.4 % (36.0-48.0); LYMPH # 0.9 (1.2-3.4); LYMPH % 8.1 % (22.0-35.0); MEAN CELL VOLUME 86.7 fl (80.0-105.0); MEAN CORPUSCULAR HEMOGLOBIN 29.3 pg (25.0-35.0); MEAN CORPUSCULAR HGB CONC 33.8 g/dl (31.0-37.0); MEAN PLATELET VOLUME 9.5 fl (7.0-11.0); MONO # 0.4 (0.1-0.6); MONO % 3.7 % (1.0-6.0); RED CELL DISTRIBUTION WIDTH 13.9 % (11.5-14.5)
[2017-02-11 19:08] LABS: URINE BILIRUBIN MODERATE (NEGATIVE); URINE BLOOD TRACE-INTACT (NEGATIVE); URINE GLUCOSE (UA) NEGATIVE (NEGATIVE); URINE KETONE 15 mg/dL (NEGATIVE); URINE LEUKOCYTE ESTERASE SMALL Leu/uL (NEGATIVE); URINE PROTEIN TRACE mg/dL (<30 mg/dL); URINE UROBILINOGEN 0.2 E.U./dL (<1 E.U./dL)
[2017-02-11 19:09] LABS: URINE APPEARANCE SL CLOUDY (CLEAR); URINE COLOR YELLOW (YELLOW)
[2017-02-11 19:10] LABS: URINE RBC 0 - 2 /hpf (0-2)
[2017-02-11 19:13] LABS: PARTIAL THROMBOPLASTIN TIME 23.9 Seconds (23.7-30.8)
[2017-02-11 19:14] LABS: ALB/GLOB RATIO 1.5 (1.1-1.8); ALKALINE PHOSPHATASE 71 U/L (38-126); ALT/SGPT 14 U/L (7-56); AST/SGOT 25 U/L (14-36); BILIRUBIN,TOTAL 1.1 mg/dL (0.2-1.3); BLOOD UREA NITROGEN 24 mg/dL (7-21); CALCIUM 9.4 mg/dL (8.4-10.5); CARBON DIOXIDE 25 mmol/L (21-33); CHLORIDE 105 mmol/L (98-107); GFR AFRICAN-AMERICAN 45; GLUCOSE,RANDOM 123 mg/dL (70-110); MAGNESIUM 2.2 mg/dL (1.7-2.2); PHOSPHOROUS 5.5 mg/dL (2.5-4.5); SODIUM 143 mmol/L (132-148); TOTAL PROTEIN 6.3 g/dL (5.8-8.3)
[2017-02-11 19:27] LABS: TROPONIN I < 0.01 ng/mL
[2017-02-11] MEDS ORDERED: Potassium Chloride 20 mEq ER Tab PO STA (20:08)
--- NOTE | 2017-02-11 20:50 | CT ---
EXAM: CT Head Without Intravenous Contrast CLINICAL HISTORY: 66 years old, female; Signs and symptoms; Altered mental status/memory loss TECHNIQUE: Axial computed tomography images of the head/brain without intravenous contrast. All CT scans at this facility use one or more dose reduction techniques, viz.: automated exposure control; ma/kV adjustment per patient size (including targeted exams where dose is matched to indication; i.e. head); or iterative reconstruction technique. COMPARISON: No relevant prior studies available. FINDINGS: Brain: Atrophy. Bilateral white matter changes. This is nonspecific and may include microangiopathic disease, small lacunae of indeterminate chronicity, chronic infarcts and/or encephalomalacia. No hemorrhage. No edema. Ventricles: No hydrocephalus. Bones: Skull is intact. Sinuses: No acute sinusitis. Mastoid air cells: No mastoid effusion. IMPRESSION: No CT evidence of acute intracranial abnormality. Chronic changes as above. Acute infarcts/early ischemic changes may not be detectable by this modality; MRI is more sensitive in detecting acute ischemia.
[2017-02-11] MEDS ORDERED: Sodium Chloride 0.9% 1,000 ML IV SCH (22:30)
[2017-02-11 22:43] LABS: FREE T4 1.14 ng/dL (0.78-2.19)
[2017-02-11 22:57] LABS: THYROID STIMULATING HORMONE 1.44 mIU/mL (0.46-4.68)
[2017-02-12 04:29] VITALS: BMI 17.9
[2017-02-12] MEDS ORDERED: Sodium Chloride 0.9% 1,000 ML IV SCH (07:00)
--- NOTE | 2017-02-12 08:19 | RAD ---
HISTORY: altered COMPARISON: 06/24/2016 FINDINGS: LUNGS: No active pulmonary disease. PLEURA: No significant pleural effusion identified, no pneumothorax apparent. CARDIOVASCULAR: Normal. OSSEOUS STRUCTURES: No significant abnormalities. VISUALIZED UPPER ABDOMEN: Normal. OTHER FINDINGS: Stable diaphragmatic hernia identified on prior chest x-ray and confirmed on CT of the abdomen and pelvis performed 01/11/2017 IMPRESSION: No active disease. No significant interval change compared to the prior examination(s).
--- NOTE | 2017-02-12 09:26 | CARD ---
APPROVED REPORT EKG Measurement Heart [id number] NM [id number] <Conclusion> Normal sinus rhythm NSSTW changes LAHB Prolonged QTc C/W 02/09/17 ECG: PVCs are no longer present, T waves are flatter and the QTc is prlonged
[2017-02-12] MEDS ORDERED: Potassium Chloride 20 mEq ER Tab PO ONE (10:00)
--- NOTE | 2017-02-12 11:48 | CP.PCM.HP ---
History of Present Illness - History of Present Illness History of Present Illness: PGY-2 H&P note for Dr. Lino 66 yo female with PMH of was brought into the emergency department by family for altered mental status. Patient is delirious and not able to give history. History taken from ED note. Patient was brought in by family complaining that patient has increasing confusion and agitation. It was also reported that patient was found naked trying to put on a trash bag and found to have urinated and defecated on the floor. Currently patient denies chest pain, sob. She reports mild burning with urination. She is only oriented to self, not to place , date or situation. ROS limited due to patients state. In ED was found to have positive UA. PMH: HTN, COPD, diverticulitis, anxiety, depression PSH: denies allergy: NKDA Social hx: former smoker, denies etoh or illicit drug use Present on Admission - Present on Admission Any Indicators Present on Admission: No Review of Systems - Review of Systems Systems not reviewed;Unavailable: Altered Mental Status Past Patient History - Infectious Disease Hx of Infectious Diseases: None - Past Social History Smoking Status: Former Smoker - CARDIAC Hx Cardiac Disorders: Yes Hx Hypertension: Yes Hx Pacemaker: No - PULMONARY Hx Respiratory Disorders: Yes Hx Chronic Obstructive Pulmonary Disease (COPD): Yes Hx Emphysema: Yes - NEUROLOGICAL Hx Neurological Disorder: Yes Hx Dementia: Yes - HEENT Hx HEENT Problems: No - RENAL Hx Chronic Kidney Disease: No - ENDOCRINE/METABOLIC Hx Endocrine Disorders: No - HEMATOLOGICAL/ONCOLOGICAL Hx Cancer: No Hx Human Immunodeficiency Virus (HIV): No - INTEGUMENTARY Hx Dermatological Problems: No - MUSCULOSKELETAL/RHEUMATOLOGICAL Hx Musculoskeletal Disorders: Yes Hx Falls: Yes - GASTROINTESTINAL Hx Gastrointestinal Disorders: Yes Hx Diverticulitis: Yes - GENITOURINARY/GYNECOLOGICAL Hx Genitourinary Disorders: No - PSYCHIATRIC Hx Psychophysiologic Disorder: Yes Hx Anxiety: Yes Hx Depression: Yes Hx Emotional Abuse: No Hx Physical Abuse: No Hx Substance Use: No - SURGICAL HISTORY Hx Surgeries: (unable to obtain) - ANESTHESIA Hx Anesthesia: Yes Hx Anesthesia Reactions: No Hx Malignant Hyperthermia: No Meds Allergies/Adverse Reactions: Allergies Allergy/AdvReac Type Severity Reaction Status Date / Time No Known Allergies Allergy Verified 02/11/17 17:40 Physical Exam - Constitutional Appears: Well, No Acute Distress, Confused - Head Exam Head Exam: ATRAUMATIC, NORMAL INSPECTION, NORMOCEPHALIC - Eye Exam Eye Exam: EOMI, Normal appearance - ENT Exam ENT Exam: Mucous Membranes Moist - Respiratory Exam Respiratory Exam: Clear to Auscultation Bilateral, NORMAL BREATHING PATTERN. absent: Decreased Breath Sounds, Rales, Rhonchi, Wheezes, Respiratory Distress - Cardiovascular Exam Cardiovascular Exam: +S1, +S2. absent: Tachycardia, Diastolic murmur, Systolic Murmur - GI/Abdominal Exam GI & Abdominal Exam: Normal Bowel Sounds, Soft. absent: Distended, Firm, Tenderness - Extremities Exam Extremities exam: Positive for: normal inspection. Negative for: pedal edema, tenderness - Neurological Exam Neurological exam: Alert Additional comments: AxO to self only - Skin Skin Exam: Dry, Intact, Normal Color, Warm Results - Vital Signs Recent Vital Signs: Last Vital Signs Temp 98.4 F 02/12/17 08:00 Pulse 76 02/12/17 08:00 Resp 19 02/12/17 08:00 BP 118/64 02/12/17 10:29 Pulse Ox 94 L 02/12/17 08:00 - Labs Result Diagrams: 02/11/17 18:46 02/11/17 18:46 Assessment & Plan - Assessment and Plan (Free Text) Assessment: 66 yo female with PMH of was brought into the emergency department by family for delirium, found to have UTI. Plan: 1. delirium - patient AxO x1 - cont home meds, donepezil - started seroquel - swallow eval - PT eval - psych evaluation for delirium 2. UTI - positive UA with mild leukocyte esterase - received 1 dose Keflex in ED - cont Keflex - urine cultures pending 3. hypokalemia - repleted this morning - repeat cmp tomorrow 4.HTN - cont home med norvasc
--- NOTE | 2017-02-12 11:53 | CON ---
DATE: HISTORY OF PRESENT ILLNESS: The patient is 66-year-old female with not known previous psychiatric history. The patient has history of dementia. The patient was brought into the hospital by her family for evaluation of altered mental status. The patient was disorganized, defecated, and urinated on the floor and incoherent speech. The patient was found to have infection, most likely it is urinary tract infection and was started on antibiotics. Psychiatric consult was called for evaluation of change in mental status and psychotic symptoms. This specification writer attempted to speak to the patient, but there is no meaningful conversation possible. Despite the fact that the patient is oriented to self and place. The patient did not make much sense. When this specification writer asked what brought the patient to the hospital, the patient said that her stomach hurt and that is why she came to the hospital. The patient denied being depressed, but comprehension is questionable. At present moment, the patient seems to be comfortable and not in acute distress. PHYSICAL EXAMINATION: VITAL SIGNS: Vital signs are stable. Temperature 98.4, pulse is 76, blood pressure 118/64, respirations 19, and oxygen saturation is 94%. MENTAL STATUS EXAMINATION: The patient presented to be alert and oriented to self and place, but not to date. The patient seems to be poor and unreliable historian. Intermittent eye contact. Speech was overproductive, low volume. Mood described as okay. Affect was constricted. Thought process was confabulating and disorganized. Thought content, the patient presented to the emergency room with disorganized behavior and disorganized thoughts. Presently, the patient is confused and psychotic. The patient denied that she hears voices. Denied seeing things. Denied paranoid ideations. Insight and judgment are fair and limited. Impulses are well controlled. MEDICATIONS: Reviewed. The patient is on Xanax 0.5 mg twice a day, Norvasc, Aricept 5 mg daily, Singulair, K-Dur, Seroquel will be started 12.5 mg at nighttime, sodium chloride, and tramadol. LABORATORY DATA: Reviewed. There are no signs of leukocytosis. Chemistry revealed potassium 3.0. Urinalysis showed leukocyte esterase and blood trace. Toxicology was negative for any substances. Reports of chest x-ray reviewed, which was done on 02/11/2017, not active disease, no significant changes compared to the prior examination. Head CT scan also was done, which showed brain atrophy, bilateral white matter changes and disease. Previous history reviewed. The patient never been evaluated by psychiatrist in the past and not even ux consultant. IMPRESSION: Change in mental status could be related to possible urinary tract infection as well as electrolyte . The patient has history of dementia. PLAN: Continue current management and Seroquel 12.5 mg at the nighttime started. Family involvement. Medical team needs for this cause. Power of employment attorney when the patient will give better from the mental standpoint and advance directives. Dr. Gonzalez will see the patient over the weekend. Thank you very much for letting me to participate in the care of your patient. Should they have any questions give me a call back. Kristel Kimball MD
[2017-02-13] MEDS ORDERED: cefTRIAXone 1 gm 1 GM/100 ML BAG IVPB STA (04:52)
[2017-02-13] MEDS ORDERED: metroNIDAZOLE IV 250mg/50 ml 250 MG/50 ML BAG IVPB STA (07:38)
--- NOTE | 2017-02-13 07:46 | CP.PCM.PN ---
Subjective - Date & Time of Evaluation Date of Evaluation: 02/13/17 Time of Evaluation: 05:20 - Subjective Subjective: called by nurse pt has temp of 101 and had diarrhea x3 mucous type. no abdominal pain. Objective - Vital Signs/Intake and Output Vital Signs (last 24 hours): Temp Pulse Resp BP Pulse Ox 101.8 F H 104 H 20 104/62 94 L 02/13/17 07:30 02/13/17 07:30 02/13/17 07:30 02/13/17 07:30 02/13/17 07:30 Intake and Output: 02/13/17 02/13/17 06:59 18:59 Intake Total 480 Output Total 10 Balance 470 - Medications Medications: Current Medications Acetaminophen (Tylenol 325mg Tab) 650 mg PO Q4H PRN PRN Reason: Fever >100.4 F Last Admin: 02/13/17 04:59 Dose: 650 mg Alprazolam (Xanax) 0.5 mg PO BID TOD PRN Reason: Protocol Last Admin: 02/12/17 17:01 Dose: 0.5 mg Amlodipine Besylate (Norvasc) 10 mg PO DAILY [facility] Last Admin: 02/12/17 10:29 Dose: 10 mg Cephalexin Monohydrate (Keflex) 500 mg PO Q12 TOD PRN Reason: Protocol Donepezil HCl (Aricept) 5 mg PO DAILY [facility] Last Admin: 02/12/17 10:29 Dose: 5 mg Metronidazole (Flagyl) 250 mg in 50 mls @ 100 mls/hr IVPB STAT STA PRN Reason: Protocol Stop: 02/13/17 08:07 Montelukast Sodium (Singulair) 10 mg PO DAILY [facility] Last Admin: 02/12/17 10:29 Dose: 10 mg Quetiapine Fumarate (Seroquel) 12.5 mg PO HS PRN; Protocol PRN Reason: agitation/confusion/psychosis Last Admin: 02/12/17 22:20 Dose: 12.5 mg Tramadol HCl (Ultram) 50 mg PO TID PRN PRN Reason: Pain, moderate (4-7) Last Admin: 02/12/17 22:18 Dose: 50 mg - Labs Labs: PT 10.8 Seconds (9.9-11.8) 02/11/17 18:46 INR 1.00 (0.93-1.08) 02/11/17 18:46 APTT 23.9 Seconds (23.7-30.8) 02/11/17 18:46 - Constitutional Appears: No Acute Distress - Head Exam Head Exam: NORMOCEPHALIC - Eye Exam Pupil Exam: PERRL - Neck Exam Neck Exam: Full ROM - Respiratory Exam Respiratory Exam: NORMAL BREATHING PATTERN - Cardiovascular Exam Cardiovascular Exam: RRR, +S1, +S2 - GI/Abdominal Exam GI & Abdominal Exam: Soft, Normal Bowel Sounds - Extremities Exam Extremities Exam: Full ROM - Neurological Exam Neurological Exam: Alert, Awake, Oriented x3 - Skin Skin Exam: Dry, Warm Assessment and Plan - Assessment and Plan (Free Text) Assessment: fever and diarrhea . Plan: c-diff stat . rocephine 1 gm stat . flagyl 250 mg x1 stat. tylenol prn ,blood c/s.
[2017-02-13 07:55] LABS: HEMATOCRIT 35.7 % (36.0-48.0); MEAN CELL VOLUME 89.3 fl (80.0-105.0); MEAN CORPUSCULAR HEMOGLOBIN 28.5 pg (25.0-35.0); MEAN CORPUSCULAR HGB CONC 31.9 g/dl (31.0-37.0); MEAN PLATELET VOLUME 9.6 fl (7.0-11.0); RED CELL DISTRIBUTION WIDTH 14.5 % (11.5-14.5); WHITE BLOOD COUNT 8.4 10^3/ul (4.5-11.0)
[2017-02-13] MEDS ORDERED: metroNIDAZOLE IV 500 mg/100 ml 500 MG/100 ML BAG IVPB STA (07:57)
[2017-02-13 09:51] LABS: ALB/GLOB RATIO 1.3 (1.1-1.8); ALKALINE PHOSPHATASE 58 U/L (38-126); ALT/SGPT 13 U/L (7-56); AST/SGOT 22 U/L (14-36); BILIRUBIN,TOTAL 0.5 mg/dL (0.2-1.3); BLOOD UREA NITROGEN 13 mg/dL (7-21); CALCIUM 8.4 mg/dL (8.4-10.5); CARBON DIOXIDE 22 mmol/L (21-33); CHLORIDE 115 mmol/L (98-107); GFR AFRICAN-AMERICAN > 60; GLUCOSE,RANDOM 94 mg/dL (70-110); POTASSIUM 3.4 mmol/L (3.6-5.0); SODIUM 147 mmol/L (132-148); TOTAL PROTEIN 5.1 g/dL (5.8-8.3)
[2017-02-13] MEDS: Potassium Chloride 20 mEq ER Tab PO SCH (13:05)
[2017-02-14] MEDS: Potassium Chloride 20 mEq ER Tab PO SCH (10:56)
[2017-02-14 16:53] VITALS: O2SAT 92
[2017-02-14] MEDS ORDERED: Vancomycin 25 MG/ML PO SCH (18:00)
--- NOTE | 2017-02-14 21:17 | CON ---
DATE: 02/14/2017 LOCATION: The patient seen in 562, Bed 1. CHIEF COMPLAINT: Diarrhea, several days. HISTORY OF PRESENT ILLNESS: This is a 66-year-old female with history of rheumatoid arthritis, chronic obstructive lung disease, diverticulitis, depression, anxiety, and long-time smoker, who has had multiple hospitalizations in the past. She was seen in the emergency room for diarrhea on 01/15/2017 and again 02/09/2017 with rectal bleeding and on 02/11/2017, the patient was admitted with confusion, fevers, diarrhea. REVIEW OF SYSTEMS: Reveals the patient is complaining of abdominal cramps and diarrhea. No chest pain. She denies any dysuria or frequency. At this point, she states she did have frequency at home and no chest pain, shortness of breath, or cough. No hemoptysis. No headaches or blurred vision. PAST MEDICAL HISTORY: Significant for rheumatoid arthritis and chronic obstructive lung disease, diverticulitis, depression, anxiety, and long-time smoker. PAST SURGICAL HISTORY: Noncontributory. ALLERGIES: NO KNOWN ALLERGIES. MEDICATIONS: At home include , Singulair, Xanax, Norvasc, and Pristiq. PHYSICAL EXAMINATION: GENERAL: The patient is in bed, in no acute distress, answering questions appropriately. VITAL SIGNS: Temperature of 99, T-max was 101.8, heart rate of 104, respiratory rate of 22. On admission, the patient's temperature was 87, oxygen saturation 91 with blood pressure is 88/57. HEENT: Unremarkable. NECK: Supple. LUNGS: Decreased breath sounds. HEART: Normal S1 and S2. ABDOMEN: Soft and nontender. No rebound. No guarding. Essentially benign abdomen. LABORATORY DATA: Laboratory examination reveals white count of 11,000, hemoglobin of 12, platelets of 328, and coagulation is noted. Chemistry reveals BUN of 13, creatinine of 0.9. Urinalysis is noted, WBCs. Cultures noted. Microbiology reveals blood cultures no growth at 48 hours, urine culture has a group B strep, beta-hemolytic strep, and stool for C. diff antigen and toxin are both positive. ASSESSMENT AND PLAN: This is a 66-year-old female with rheumatoid arthritis, chronic obstructive lung disease, diverticulitis, depression, anxiety, hypertension, coronary artery disease, chronic obstructive lung disease, and dementia, admitted with fevers, tachycardia, hypoxia, initially had hypothermia with severe sepsis secondary to severe pseudomembranous colitis. We will treat with p.o. vancomycin 250 mg p.o. q.i.d., and IV Flagyl, place the patient on seizure precautions. Repeat the urinalysis and urine culture. We will follow closely with you. Tho Auguste MD
[2017-02-14] MEDS: metroNIDAZOLE IV 500 mg/100 ml 500 MG/100 ML BAG IVPB SCH (22:13)
[2017-02-14] MEDS: Vancomycin 25 MG/ML PO SCH (22:13)
--- NOTE | 2017-02-14 23:23 | PN ---
DATE: 02/13/2017 HISTORY OF PRESENT ILLNESS: Ms. Vizcaino is a 66-year-old female admitted to the hospital with altered mental status. She was delirious. UA was positive. She was started on oral antibiotic Keflex. She was given IV fluid. She had hypokalemia on admission, supplemented with oral potassium. Sitting comfortably in chair, complaining of diarrhea. No abdominal pain. No nausea. No vomiting. PAST MEDICAL HISTORY: Hypertension, COPD, diverticulitis, anxiety, and depression. PAST SURGICAL HISTORY: Unknown. ALLERGIES: NO KNOWN DRUG ALLERGIES. SOCIAL HISTORY: Former smoker. No history of drug abuse. REVIEW OF SYSTEMS: As per HPI. Rest of 12-point review of systems reviewed negative. PHYSICAL EXAMINATION: GENERAL: Comfortable in bed, in no acute distress. VITAL SIGNS: Temperature 98.4, heart rate is 76 per minute, respiratory rate 19 per minute, blood pressure 118/64, and pulse ox is 94% on room air. HEENT: Pallor positive. NECK: Supple. No lymphadenopathy. CHEST: Air entry present equal and bilaterally. No added sounds. CARDIOVASCULAR: S1 and S2 normal. No murmur. No gallop. ABDOMEN: Soft and nontender. No hepatosplenomegaly. EXTREMITIES: No edema. CENTRAL NERVOUS SYSTEM: Alert and oriented x3. No focal sensory or motor deficits. SKIN: No petechiae. No rash. LABORATORY DATA: White count 11,000, hemoglobin 12.3, hematocrit 36.4, and platelet count 328. Sodium 143, potassium 3, BUN 24, creatinine 1.4, sodium 123. UA positive. ASSESSMENT: 1. Delirium. 2. Urosepsis. 3. Dementia. 4. Hypertension. PLAN: She is on p.o. Keflex 500 mg p.o. q. 12, we will continue that; C. diff to be sent on the stool for C. diff colitis; Tylenol 650 q. 4 hours p.r.n.; Norvasc 10 mg daily for hypertension; Aricept 5 mg daily; Flagyl 500 mg q. 8 hours; Singulair 10 mg daily; potassium 20 mEq p.o. daily, and Ultram p.r.n. for pain. Lou Fay, MD
--- NOTE | 2017-02-15 | PN ---
DATE: 02/14/2017 SUBJECTIVE: She is comfortable in chair, in no acute distress, complaining of diarrhea, stool positive for C. diff. She still has hypokalemia, potassium improved to 3.4. Denies any abdominal pain. Able to accept orally. PHYSICAL EXAMINATION GENERAL: Comfortable in chair, in no acute distress. VITAL SIGNS: Temperature 99.1, heart rate 80 per minute, blood pressure 104/67, respiratory rate 20 per minute and oxygen saturation 91% on room air. HEENT: Normal. Pallor positive. NECK: Supple. No lymphadenopathy. CHEST: Air entry present and equal bilateral. No added sound. CARDIOVASCULAR: S1 and S2 normal. No murmur. No gallop. ABDOMEN: Soft and nontender. No hepatosplenomegaly. EXTREMITIES: No edema. GERIATRIC NURSE ASSISTANT: Alert and oriented x3. No focal sensory or motor deficit. SKIN: No petechiae. No rash. LABORATORY DATA: C. diff positive. Sodium 147, potassium 3.4, BUN 13, creatinine 0.9 and total protein 5.1. White count 8.4, hemoglobin 11.4, hematocrit 35 and platelet 248. MEDICATIONS: Tylenol 650 q. 6 hours p.r.n., Xanax 0.5 mg b.i.d., Norvasc 10 mg daily, Aricept 5 mg daily, Singulair 10 mg daily, Seroquel 12.5 mg p.o. at bedtime, Ultram 50 mg p.o. t.i.d. and potassium 20 mEq daily. ASSESSMENT: 1. Clostridium difficile colitis. 2. Urinary tract infection. 3. Anemia. 4. Delirium. 5. Hypertension. PLAN: Infectious disease consultation Dr. Auguste requested, vancomycin 250 mg p.o. q.i.d. ordered. Potassium supplementation, K-Dur 20 mEq p.o. daily. We will continue to monitor electrolytes and renal functions. Lou Aponte MD
[2017-02-15] MEDS: metroNIDAZOLE IV 500 mg/100 ml 500 MG/100 ML BAG IVPB SCH ×2 (05:08→13:45)
[2017-02-15 07:21] VITALS: BP 120/72; PULSE 90; RESP 18; TEMP 98.2
--- NOTE | 2017-02-15 09:06 | CON ---
HISTORY OF PRESENT ILLNESS: The patient is a 66-year-old female with no prior psychiatric history, who is currently being followed by psychiatry for delirium in the context of her dementia. I reviewed Dr. Kimball's notes and met with the patient at bedside, and the patient continues to be quite disoriented, only aware of current location. She is not aware of current month or year or reason for her hospitalization. Still difficult that the patient appears preoccupied and confused. She denies depression or hallucinations, has some difficulty with sleep per conversation with nursing this morning. She was generally calm during my meeting, but I agree with Dr. Kimball. It is hard to have a meaningful conversation with her due to her current disorientation. She does not appear to be actively hallucinating; however, her insight and judgement continue to be poor. PHYSICAL EXAMINATION: VITAL SIGNS: Reviewed by this provider at 4:30 a.m. The patient had a low-grade fever of 100.8 at 4:30 a.m. Vital signs at 7:30 this morning were 101.8, 104, 104/62, and oxygen saturation was 94%. LABORATORY DATA: Labs were reviewed by this provider. It is only showing mild anemia. Hemoglobin and hematocrit were 11.1 and 35.7 respectively. MEDICATIONS: Current relevant psychiatric medications include Xanax 0.5 mg p.o. b.i.d. and Seroquel 12.5 mg p.o. at bedtime p.r.n. IMPRESSION: Continued delirium in the context of dementia. RECOMMENDATIONS: At this time, we will continue with current medications, however, change Seroquel to standing 12.5 mg at bedtime. Management should continue. We will try to optimize her medical care to improve her delirium, but please note that delirium can take time to resolve, and it can possibly take a few weeks. The patient has been calm thus far. Psychiatry will continue to follow up with the patient on the unit and see her every other day. Please call if there are any acute changes in her presentation that would warrant earlier evaluation. Pallavi Gonzalez MD
[2017-02-15] MEDS: Potassium Chloride 20 mEq ER Tab PO SCH (10:07)
[2017-02-15] MEDS: Vancomycin 25 MG/ML PO SCH ×2 (10:08→13:45)
[2017-02-15 11:29] LABS: ALB/GLOB RATIO 1.4 (1.1-1.8); ALKALINE PHOSPHATASE 54 U/L (38-126); ALT/SGPT 26 U/L (7-56); AST/SGOT 21 U/L (14-36); BILIRUBIN,TOTAL 0.4 mg/dL (0.2-1.3); BLOOD UREA NITROGEN 6 mg/dL (7-21); CALCIUM 9.4 mg/dL (8.4-10.5); CARBON DIOXIDE 29 mmol/L (21-33); CHLORIDE 108 mmol/L (98-107); GFR AFRICAN-AMERICAN > 60; GLUCOSE,RANDOM 107 mg/dL (70-110); SODIUM 143 mmol/L (132-148); TOTAL PROTEIN 5.2 g/dL (5.8-8.3)
[2017-02-15 11:30] LABS: HEMATOCRIT 36.6 % (36.0-48.0); MEAN CELL VOLUME 88.2 fl (80.0-105.0); MEAN CORPUSCULAR HEMOGLOBIN 28.2 pg (25.0-35.0); MEAN PLATELET VOLUME 10.5 fl (7.0-11.0); RED CELL DISTRIBUTION WIDTH 13.9 % (11.5-14.5); WHITE BLOOD COUNT 6.6 10^3/ul (4.5-11.0)
--- NOTE | 2017-02-15 12:10 | CP.PCM.PN ---
<Roma Mar - Last Filed: 02/15/17 13:05> Subjective - Date & Time of Evaluation Date of Evaluation: 02/15/17 Time of Evaluation: 12:09 - Subjective Subjective: PGY-[address] Lino Patient seen and examined at bedside. No acute distress. Patient is alert and oriented to person, time and place. Patient denies any pain. She states that she did have diarrhea and abd discomfort over the weekend but states that it is improving. She denies any dysuria, chest pain, sob, n/v. Objective - Vital Signs/Intake and Output Vital Signs (last 24 hours): Temp Pulse Resp BP Pulse Ox 98.2 F 90 18 120/72 92 L 02/15/17 07:20 02/15/17 07:20 02/15/17 07:20 02/15/17 10:07 02/15/17 07:20 Intake and Output: 02/15/17 02/15/17 06:59 18:59 Intake Total 120 120 Balance 120 120 - Medications Medications: Current Medications Acetaminophen (Tylenol 325mg Tab) 650 mg PO Q4H PRN PRN Reason: Fever >100.4 F Last Admin: 02/14/17 14:02 Dose: 650 mg Alprazolam (Xanax) 0.5 mg PO BID TOD PRN Reason: Protocol Last Admin: 02/15/17 10:07 Dose: 0.5 mg Amlodipine Besylate (Norvasc) 10 mg PO DAILY [facility] Last Admin: 02/15/17 10:07 Dose: 10 mg Donepezil HCl (Aricept) 5 mg PO DAILY [facility] Last Admin: 02/15/17 10:07 Dose: 5 mg Metronidazole (Flagyl) 500 mg in 100 mls @ 100 mls/hr IVPB Q8 TOD PRN Reason: Protocol Stop: 02/23/17 22:01 Last Admin: 02/15/17 05:08 Dose: 100 mls/hr Montelukast Sodium (Singulair) 10 mg PO DAILY TOD Last Admin: 02/15/17 10:07 Dose: 10 mg Potassium Chloride (K-Dur 20 Meq Er Tab) 20 meq PO DAILY [facility] Last Admin: 02/15/17 10:07 Dose: 20 meq Tramadol HCl (Ultram) 50 mg PO TID PRN PRN Reason: Pain, moderate (4-7) Last Admin: 02/14/17 17:45 Dose: 50 mg Vancomycin HCl (Vancocin 25 Mg/Ml (Oral Use)) 250 mg PO QID TOD PRN Reason: Protocol Stop: 02/28/17 22:01 Last Admin: 02/15/17 10:08 Dose: 250 mg - Labs Labs: 02/15/17 11:00 02/15/17 11:00 PT 10.8 Seconds (9.9-11.8) 02/11/17 18:46 INR 1.00 (0.93-1.08) 02/11/17 18:46 APTT 23.9 Seconds (23.7-30.8) 02/11/17 18:46 - Constitutional Appears: Well, No Acute Distress - Head Exam Head Exam: ATRAUMATIC, NORMAL INSPECTION, NORMOCEPHALIC - Eye Exam Eye Exam: EOMI, Normal appearance - ENT Exam ENT Exam: Mucous Membranes Moist - Respiratory Exam Respiratory Exam: Clear to Ausculation Bilateral, NORMAL BREATHING PATTERN. absent: Decreased Breath Sounds, Rales, Rhonchi, Wheezes, Respiratory Distress, Stridor - Cardiovascular Exam Cardiovascular Exam: REGULAR RHYTHM, +S1, +S2. absent: Tachycardia, Murmur - GI/Abdominal Exam GI & Abdominal Exam: Soft, Normal Bowel Sounds. absent: Distended, Firm, Tenderness - Extremities Exam Extremities Exam: Normal Inspection. absent: Pedal Edema - Neurological Exam Neurological Exam: Alert, Awake, Oriented x3 - Skin Skin Exam: Dry, Intact, Normal Color, Warm Assessment and Plan - Assessment and Plan (Free Text) Assessment: 66 yo female with PMH of was brought into the emergency department by family for delirium, found to have UTI. Plan: 1. severe sepsis 2/2 c. diff colitis - positive c.diff - patient started on vancomycin and metronidazole - ID following - contact precautions 2. delirium - improved, patient is AxO x3 - most likely 2/2 to sepsis due to c.diff - cont home meds, donepezil - started seroquel 3. UTI - positive UA with mild leukocyte esterase - urine cultures showed beta hemolytic strep group B - patient received keflex - repeat urine cultures 4. hypokalemia - improved - cont k- dur daily - cont to monitor 5.HTN - cont home med norvasc - PT recommenced TCU <Holland,Sanchez S - Last Filed: 02/15/17 21:25> Objective - Vital Signs/Intake and Output Vital Signs (last 24 hours): Temp Pulse Resp BP Pulse Ox 98.2 F 90 18 120/72 92 L 02/15/17 07:20 02/15/17 07:20 02/15/17 07:20 02/15/17 10:07 02/15/17 07:20 Intake and Output: 02/15/17 02/16/17 18:59 06:59 Intake Total 900 Output Total 2 Balance 898 - Labs Labs: 02/15/17 11:00 02/15/17 11:00 PT 10.8 Seconds (9.9-11.8) 02/11/17 18:46 INR 1.00 (0.93-1.08) 02/11/17 18:46 APTT 23.9 Seconds (23.7-30.8) 02/11/17 18:46 Assessment and Plan - Assessment and Plan (Free Text) Plan: Pt seen and examined. Agree with above note and plan of resident.Meds reviewed. Will go to TCU.
--- NOTE | 2017-02-15 14:14 | CP.PCM.PN ---
Subjective - Date & Time of Evaluation Date of Evaluation: 02/15/17 Time of Evaluation: 12:15 - Subjective Subjective: Still having loose bowel movement, no fevers overnight, abdominal cramping is better. Objective - Vital Signs/Intake and Output Vital Signs (last 24 hours): Temp Pulse Resp BP Pulse Ox 97.3 F L 71 22 88/57 L 92 L 02/14/17 16:00 02/14/17 16:00 02/14/17 16:00 02/14/17 16:00 02/14/17 16:00 Intake and Output: 02/14/17 02/15/17 18:59 06:59 Intake Total 660 120 Output Total 1 Balance 659 120 - Medications Medications: Current Medications Acetaminophen (Tylenol 325mg Tab) 650 mg PO Q4H PRN PRN Reason: Fever >100.4 F Last Admin: 02/14/17 14:02 Dose: 650 mg Alprazolam (Xanax) 0.5 mg PO BID TOD PRN Reason: Protocol Last Admin: 02/14/17 17:45 Dose: 0.5 mg Amlodipine Besylate (Norvasc) [address] [facility] Last Admin: 02/14/17 10:55 Dose: 10 mg Donepezil HCl (Aricept) [address] [facility] Last Admin: 02/14/17 10:55 Dose: 5 mg Metronidazole (Flagyl) 500 mg in 100 mls @ 100 mls/hr IVPB Q8 TOD PRN Reason: Protocol Stop: 02/23/17 22:01 Last Admin: 02/15/17 05:08 Dose: 100 mls/hr Montelukast Sodium (Singulair) 10 mg PO DAILY [facility] Last Admin: 02/14/17 10:56 Dose: 10 mg Potassium Chloride (K-Dur 20 Meq Er Tab) 20 meq PO DAILY TOD Last Admin: 02/14/17 10:56 Dose: 20 meq Quetiapine Fumarate (Seroquel) 12.5 mg PO HS PRN; Protocol PRN Reason: agitation/confusion/psychosis Last Admin: 02/12/17 22:20 Dose: 12.5 mg Tramadol HCl (Ultram) 50 mg PO TID PRN PRN Reason: Pain, moderate (4-7) Last Admin: 02/14/17 17:45 Dose: 50 mg Vancomycin HCl (Vancocin 25 Mg/Ml (Oral Use)) 250 mg PO QID TOD PRN Reason: Protocol Stop: 02/28/17 22:01 Last Admin: 02/14/17 22:13 Dose: 250 mg - Labs Labs: 02/13/17 07:00 02/13/17 07:00 PT 10.8 Seconds (9.9-11.8) 02/11/17 18:46 INR 1.00 (0.93-1.08) 02/11/17 18:46 APTT 23.9 Seconds (23.7-30.8) 02/11/17 18:46 - Constitutional Appears: Non-toxic, No Acute Distress - Head Exam Head Exam: NORMAL INSPECTION - ENT Exam ENT Exam: Mucous Membranes Moist - Neck Exam Neck Exam: absent: Lymphadenopathy, Meningismus - Respiratory Exam Respiratory Exam: Decreased Breath Sounds - Cardiovascular Exam Cardiovascular Exam: +S1, +S2 - GI/Abdominal Exam GI & Abdominal Exam: Soft. absent: Tenderness Assessment and Plan - Assessment and Plan (Free Text) Plan: Assessment Severe sepsis due to acute C. diff. colitis history of acute jejunoileitis (enteritis) HTN history of diverticulitis rheumatoid arthritis history of depression COPD with significant smoking history Plan Continue PO Vancomycin and IV Flagyl (day 2); target 10-14 days Will continue to monitor clinical response
--- NOTE | 2017-02-15 14:32 | PN ---
SUBJECTIVE: The patient was followed up today. The patient presented much better compared to the last week. The patient did not get any p.r.n. medication, that is why Seroquel will be discontinued. Last time, the patient took Seroquel was . The patient presented to be alert and oriented. The patient is aware of the circumstances of her admission. The patient ambulates better. Has fair appetite and sleep. The patient reported that she feels better. The patient said that she has history of depression, but denied history of suicidal attempts. Prior to that to coming to the hospital, the patient said that she stopped taking Ultram, and also her impression is that it contributed to her condition and confusion. The patient does not present to be in any distress, much better to compare with the last week. MEDICATIONS: Reviewed. The patient is on Tylenol, Xanax 0.5 mg twice a day, Norvasc, Aricept, Flagyl, Singulair, potassium chloride, Ultram as well as vancomycin. LABORATORY DATA: Labs reviewed. Hemoglobin and hematocrit 11.4 and 35.7. Coagulation reviewed. Chemistry reviewed. The patient has potassium of 3.4. Urinalysis showed leukocyte esterase. Bilirubin moderate, blood trace, and protein trace. Toxicology was positive for benzodiazepines. Microbiology, beta-hemolytic streptococcus in urine culture. C. diff was found as well in the stool. The patient is in contact isolation. MENTAL STATUS EXAM: The patient presents to be alert and oriented, good personal hygiene, ambulates by herself, overall much better to compare with the last week. Speech was normal rate, tone, quality, and quantity. Eye contact is fair. Mood described as feeling better. Affect was constricted, but reactive. Mood congruent. Thought process was coherent and goal directed. Thought content, the patient denied visual, auditory, or tactile hallucination. Denied paranoid ideation. The patient denied thoughts of harming herself or others. Denied intents or plan. Insight judgment are fair. Impulses are well controlled. IMPRESSION: Delirium, clearing. The patient has history of depression, rule out mood disorder due to general medical condition, rule out adjustment disorder. PLAN: Continue current management. The patient asked about contact information for psychiatrist in the community. This radio news writer educated about local psychiatrists and this radio news writer provided the patient with a phone number to his office and also was given contact information of [facility], [facility], and [facility]. The patient was appreciated. The patient pose no imminent danger to self or others. This radio news writer will sign off. Should you have any questions, give me a call back. Overall, the patient is doing much better. This radio news writer will discontinue Seroquel at the nighttime. Physical therapy evaluation is recommended. Also, Xanax could give risk of falls. The patient was educated about that. Meanwhile, this radio news writer will sign off from this case. Should you have any questions, give me a call back. Kristel Kimball MD
== END 2017-02-15 14:57 | DRG 872 ==
LOC: ED 17:22 → ERH 22:14 → 5RNO 02-12 00:15
PROVIDERS: ADMIT Internal Medicine Nephrology; ATTEND Internal Medicine Nephrology
DX: A41.9 Sepsis, unspecified organism (principal); A04.72 Enterocolitis due to Clostridium difficile, not specified as recurrent; N39.0 Urinary tract infection, site not specified; R65.20 Severe sepsis without septic shock; F03.90 Unspecified dementia, unspecified severity, without behavioral disturbance, psychotic disturbance, mood disturbance, and anxiety; J44.9 Chronic obstructive pulmonary disease, unspecified; K57.92 Diverticulitis of intestine, part unspecified, without perforation or abscess without bleeding; I10 Essential (primary) hypertension; E87.6 Hypokalemia; M06.9 Rheumatoid arthritis, unspecified; F41.9 Anxiety disorder, unspecified; R09.02 Hypoxemia; I25.10 Atherosclerotic heart disease of native coronary artery without angina pectoris; F32.9 Major depressive disorder, single episode, unspecified; D64.9 Anemia, unspecified; Z87.891 Personal history of nicotine dependence

== ENCOUNTER 2017-02-15 14:28 | Inpatient (IN) | payer OTHER, BC ==
[2017-02-15] MEDS: Vancomycin 25 MG/ML PO SCH ×2 (18:10→21:21)
[2017-02-15 19:10] VITALS: BMI 17.2
[2017-02-15] MEDS: metroNIDAZOLE IV 500 mg/100 ml 500 MG/100 ML BAG IVPB SCH (21:21)
[2017-02-16] MEDS: metroNIDAZOLE IV 500 mg/100 ml 500 MG/100 ML BAG IVPB SCH (05:25)
[2017-02-16] MEDS: Potassium Chloride 20 mEq ER Tab PO SCH (08:23)
--- NOTE | 2017-02-16 08:52 | PN ---
DATE: 02/16/2017 SUBJECTIVE: Initial H and P was reviewed and agree with. The patient has no complaints of any chest pain or shortness of breath. No headaches or dizziness. PHYSICAL EXAMINATION: VITAL SIGNS: Temperature is 97.7, pulse is 77, respirations 15. GENERAL: The patient is lying in bed, flat, comfortable. HEENT: No oral lesion. Anicteric sclerae. Moist mucosa. NECK: No JVD, adenopathy, or thyromegaly. CARDIOVASCULAR: S1 and S2, regular. No murmurs, rubs, or gallops. LUNGS: Clear to auscultation bilaterally. No wheeze, rales, or rhonchi. ABDOMEN: Bowel sounds are positive, soft, nontender and nondistended. EXTREMITIES: No cyanosis, clubbing or edema. ASSESSMENT: 1. Clostridium difficile colitis. 2. Delirium, resolved. 3. Urinary tract infection. 4. Hypokalemia. 5. Hypertension. PLAN: The patient is on amlodipine 5 for hypertension. She is going to be on Aricept. The patient is going to continue with tramadol for pain. She is on vancomycin for her antibiotics as well as Flagyl. I have changed her IV Flagyl to p.o. The patient is on a regular diet. She is being followed by Dr. Auguste. Sanchez Lino MD
[2017-02-16] MEDS: Vancomycin 25 MG/ML PO SCH ×4 (10:02→21:45)
--- NOTE | 2017-02-16 10:33 | CP.PCM.CON ---
History of Present Illness - History of Present Illness History of Present Illness: Surgery 66 F w PMH of diaphragmatic hernia, COPD, HTN, surgery is consulted for 2nd opinion for diaphragmatic hernia. Pt reports that she found out about diaphragmatic hernia 4 years ago. Pt was decided not to undergo surgery. Denies F/C/N/V/CP/SOB/hematemesis/hematochezia/hematuria. Tolerating diet. Pt had obstructive symptoms in the past. Pt was recently admitted for AMS 2/2 UTI and c -diff infection. Denies taking any steroids. PMH: COPD, HTN PSH: L inguinal hernia repair SS: former smoker Review of Systems - Review of Systems Review of Systems: See HPI Past Patient History - Infectious Disease Hx of Infectious Diseases: None - Past Social History Smoking Status: Former Smoker - CARDIAC Hx Hypertension: Yes - PULMONARY Hx Chronic Obstructive Pulmonary Disease (COPD): Yes - NEUROLOGICAL Hx Neurological Disorder: Yes Hx Dementia: Yes - HEENT Hx HEENT Problems: No - RENAL Hx Chronic Kidney Disease: No - ENDOCRINE/METABOLIC Hx Endocrine Disorders: No - HEMATOLOGICAL/ONCOLOGICAL Hx Cancer: No Hx Human Immunodeficiency Virus (HIV): No - INTEGUMENTARY Hx Dermatological Problems: No - MUSCULOSKELETAL/RHEUMATOLOGICAL Hx Falls: Yes - GASTROINTESTINAL Hx Gastrointestinal Disorders: Yes (COLITIS,ENTERITIS,CONSTIPATION,RECTAL BLEED, BOWEL OBSTRUCTION,HEMORRHOIDS) - GENITOURINARY/GYNECOLOGICAL Hx Genitourinary Disorders: Yes (UTI) Hx Reproductive Disorders: No - PSYCHIATRIC Hx Psychophysiologic Disorder: Yes Hx Anxiety: Yes Hx Depression: Yes Hx Emotional Abuse: No Hx Physical Abuse: No Hx Substance Use: No - SURGICAL HISTORY Hx Surgeries: (unable to obtain) - ANESTHESIA Hx Anesthesia: Yes Hx Anesthesia Reactions: No Hx Malignant Hyperthermia: No Meds Allergies/Adverse Reactions: Allergies Allergy/AdvReac Type Severity Reaction Status Date / Time No Known Allergies Allergy Verified 02/15/17 17:18 - Medications Medications: Current Medications Acetaminophen (Tylenol 325mg Tab) 650 mg PO Q4H PRN; Protocol PRN Reason: Fever >100.4 F Alprazolam (Xanax) 0.5 mg PO BID [facility] PRN Reason: Protocol Last Admin: 02/16/17 10:03 Dose: 0.5 mg Amlodipine Besylate (Norvasc) 10 mg PO DAILY [facility] Last Admin: 02/16/17 10:04 Dose: Not Given Donepezil HCl (Aricept) 5 mg PO HS TOD PRN Reason: Protocol Metronidazole (Flagyl) 500 mg PO Q8 [facility] PRN Reason: Protocol Montelukast Sodium (Singulair) 10 mg PO DAILY [facility] PRN Reason: Protocol Last Admin: 02/16/17 10:02 Dose: 10 mg Potassium Chloride (K-Dur 20 Meq Er Tab) 20 meq PO 0800 [facility] PRN Reason: Protocol Last Admin: 02/16/17 08:23 Dose: 20 meq Tramadol HCl (Ultram) 50 mg PO TID PRN; Protocol PRN Reason: Pain, moderate (4-7) Last Admin: 02/16/17 10:16 Dose: 50 mg Vancomycin HCl (Vancocin 25 Mg/Ml (Oral Use)) 250 mg PO QID [facility] PRN Reason: Protocol Last Admin: 02/16/17 10:02 Dose: 250 mg Physical Exam - Constitutional Appears: No Acute Distress - Head Exam Head Exam: ATRAUMATIC, NORMAL INSPECTION, NORMOCEPHALIC - Eye Exam Eye Exam: EOMI, Normal appearance, PERRL Pupil Exam: NORMAL ACCOMODATION, PERRL - ENT Exam ENT Exam: Mucous Membranes Moist, Normal Exam - Neck Exam Neck exam: Positive for: Normal Inspection - Respiratory Exam Respiratory Exam: Clear to Auscultation Bilateral, NORMAL BREATHING PATTERN - Cardiovascular Exam Cardiovascular Exam: REGULAR RHYTHM, +S1, +S2 - GI/Abdominal Exam GI & Abdominal Exam: Normal Bowel Sounds, Soft. absent: Distended, Firm, Guarding, Hernia, Rigid, Tenderness - Extremities Exam Extremities exam: Positive for: normal inspection - Back Exam Back exam: NORMAL INSPECTION - Neurological Exam Neurological exam: Alert, CN II-XII Intact, Normal Gait, Oriented x3, Reflexes Normal - Psychiatric Exam Psychiatric exam: Normal Affect, Normal Mood - Skin Skin Exam: Dry, Intact, Normal Color, Warm Results - Vital Signs Recent Vital Signs: Last Vital Signs Temp 98.3 F 02/16/17 08:54 Pulse 79 02/16/17 08:54 Resp 18 02/16/17 08:54 BP 96/54 L 02/16/17 10:04 Pulse Ox 94 L 02/16/17 08:54 Assessment & Plan - Assessment and Plan (Free Text) Assessment: 66 M R diaphragmatic hernia -No emergent surgical intervention needed at this time. -Pt is asymptomatic -We will monitor -Expectant management DW Dr. Potter
--- NOTE | 2017-02-16 15:32 | CP.PCM.PCO ---
Physician Communication Note - Physician Communication Note Physician Communication Note: signed off from this case yesterday,d/w today, consult canceled
--- NOTE | 2017-02-16 20:21 | CON ---
DATE: 02/16/2017 LOCATION: The patient is in room 316. CHIEF COMPLAINT: Weakness since several days. HISTORY OF PRESENT ILLNESS: This is a 66-year-old female with past medical history of rheumatoid arthritis, chronic obstructive lung disease, diverticulitis, anxiety, depression, longtime smoker and who has no known allergies, who is admitted to the acute care. The patient had been having diarrhea and found to have C. diff now and transferred to transitional care. PAST MEDICAL HISTORY: Significant for rheumatoid arthritis, chronic obstructive lung disease, diverticulitis, anxiety and depression. PAST SURGICAL HISTORY: Noncontributory. ALLERGIES: THE PATIENT HAS NO KNOWN ALLERGIES. SOCIAL HISTORY: The patient is a longtime smoker. REVIEW OF SYSTEMS: Reveals the patient's diarrhea has improved; however, still has some episodes of diarrhea. No nausea or vomiting. No chest pain. No fevers or chills. PHYSICAL EXAMINATION VITAL SIGNS: The patient is in bed with a temperature of 98, blood pressure is 100/60, respiratory rate of 22, heart rate of 71. HEENT: Unremarkable. NECK: Supple. LUNGS: Decreased breath sounds. HEART: Normal S1 and S1. ABDOMEN: Soft, nontender. No organomegaly. No rebound. No guarding. LABORATORY DATA: Reveals white count of 6.6, hemoglobin of 11, platelets of 194. Chemistries are noted and the patient's BUN is noted. Creatinine is 1.4. Urinalysis is noted. 5 to 10 wbc. Microbiology reveals urine cultures group B strep and stool C. diff with positive antigen and toxin. Blood cultures no growth. ASSESSMENT AND PLAN: He is a 66-year-old female with rheumatoid arthritis, chronic obstructive lung disease, diverticulitis, anxiety, depression, who is admitted with diarrhea, and with severe sepsis secondary to severe pseudomembranous colitis and acute kidney injury, which is resolved on IV Flagyl and p.o. vancomycin. I will make further recommendations based on response. Now p.o. vancomycin. We will discontinue the Flagyl. Tho Auguste MD
--- NOTE | 2017-02-16 23:26 | CON ---
DATE: 02/16/2017 HISTORY OF PRESENT ILLNESS: Mrs. Smith is a 66-year-old white female presenting with a past medical history of hypertension, COPD, diverticulitis, anxiety, depression, gastric reflux disease. The patient was brought to the emergency room with a change in mental status. The patient reported in the ER, burning with urination. She was not completely oriented in the emergency room. Review of her laboratory data during the hospital admission indicated the urine culture showed beta-hemolytic Strep group B on 02/11/2017. On 02/13/2017, stool for C. difficile is positive for both antigen and toxin. At the current time point, the patient is complaining about mild abdominal cramping, both at the right lower quadrant and left lower quadrant. She has no serious degree of abdominal pain. She has no epigastric pain. At times, she may complain of some acid reflux. The main complaint right now is loose bowel movements. Noted that she is not eating solid foods, diet consistency of liquid, semisolid high consistency. She did relate in the past she had used MiraLax for constipation, but this is not the issue at the current time point. She has no fever, chills, nausea, vomiting, shortness of breath, chest pain at the current time point. PHYSICAL EXAMINATION: VITAL SIGNS: I reviewed the patient's vital signs. HEENT: Significant for dry mouth. LUNGS: Decreased breath sounds based around the lungs. HEART: Regular rhythm. ABDOMEN: Soft. Not distended. No tenderness elicited in any quadrant. She is not tender in the epigastric or left upper quadrant. LABORATORY DATA: I reviewed this patient's laboratory data, which is significant for a white count of 6.6 with an H and H of 11.7 and 36, platelet count 194. Chemistry is noncontributory. Noted that the C. diff data positive for antigen and toxin was on 01/12/2017 and repeated since then. ASSESSMENT: This is a 66-year-old white female, admitted for change in mental status, found to be septic, also with stool positive for a clostridium difficile colitis. Note, the patient was started on vancomycin and Flagyl by the Infectious Disease service. Review of the patient's orders is significant for Aricept, p.o. metronidazole, amlodipine, tramadol and vancomycin 250 mg p.o. q.8 hours. The patient is currently on a regular diet. Note that with her bowel movement situation, a soft low residue diet will probably be recommended. She indicates she is a picky eater and does not eat high fiber food. Since the patient has severe abdominal pain, but is still experiencing some loose bowel movements, most likely one can attribute this, especially in view of the antibiotic coverage with vancomycin and metronidazole to probably some irritable bowel residual plus antibiotic effect if the clostridium difficile has been successfully treated. The patient is complaining about dyspeptic symptoms of increased gas several times during the daytime. One might consider adding either Nicole or Gasex and possibly Mylicon suspension for excess gas and distention. Aside from the diarrhea not much to add. Again, the coverage is appropriate. This is being covered by Infectious Disease. I reviewed the issue of her diaphragmatic hernia and at this particular time point, the patient has no trouble with swallowing and does not experience severe retrosternal chest pain, does not have regurgitation of food into the mouth; therefore a surgical procedure at this particular time point for hernia is not in her best interest. If she did wish to pursue a surgical procedure at some time point, I would suggest this be pursued at a [facility] where the patient could be tested appropriately for a procedure of this magnitude. Dyllan Blackwell DO, PhD SEE
[2017-02-17] MEDS: Potassium Chloride 20 mEq ER Tab PO SCH (08:00)
--- NOTE | 2017-02-17 09:29 | PN ---
DATE: 02/17/2017 SUBJECTIVE: The patient has no complaint of any chest pain or shortness of breath. No headaches or dizziness. PHYSICAL EXAMINATION: VITAL SIGNS: Temperature is 98.3, pulse is 79, blood pressure is 96/54, respirations 18. GENERAL: The patient is lying in bed, flat, comfortable. HEENT: No oral lesion. Anicteric sclerae. Moist mucosa. NECK: No JVD, adenopathy, or thyromegaly. CARDIOVASCULAR: S1 and S2, regular. No murmurs, rubs, or gallops. LUNGS: Clear to auscultation bilaterally. No wheeze, rales, or rhonchi. ABDOMEN: Bowel sounds are positive, soft, nontender and nondistended. EXTREMITIES: No cyanosis, clubbing or edema. ASSESSMENT: 1. Clostridium difficile colitis. 2. Delirium, resolved. 3. Urinary tract infection, resolved. 4. Right diaphragmatic hernia. 5. Hypokalemia. 6. Hypertension. PLAN: The patient is currently comfortable. Her potassium was replaced. She is on Aricept. She is going to continue with amlodipine for hypertension. She is on tramadol as needed. She is on vancomycin for her colitis. She is being followed by GI and surgery. I appreciate the input of surgery team. I did speak to Dr. Gillespie. Sanchez Lino MD
[2017-02-17] MEDS: Vancomycin 25 MG/ML PO SCH ×4 (09:50→21:15)
--- NOTE | 2017-02-17 11:52 | CP.PCM.PN ---
Subjective - Date & Time of Evaluation Date of Evaluation: 02/17/17 Time of Evaluation: 07:00 - Subjective Subjective: General Surgery Progress Note for Dr. Gillespie Patient seen and examined at bedside. No acute event overnight. Patient lying in bed comfortably. She still having episodes of diarrhea. Patient has no other complaints at this time. Tolerating diet. Objective - Vital Signs/Intake and Output Vital Signs (last 24 hours): Temp Pulse Resp BP Pulse Ox 97.6 F 69 18 98/65 L 96 02/17/17 10:17 02/17/17 10:17 02/17/17 10:02/17/17 10:02/17/17 10:17 - Medications Medications: Current Medications Acetaminophen (Tylenol 325mg Tab) 650 mg PO Q4H PRN; Protocol PRN Reason: Fever >100.4 F Alprazolam (Xanax) 0.5 mg PO BID [facility] PRN Reason: Protocol Last Admin: 02/17/17 09:53 Dose: 0.5 mg Amlodipine Besylate (Norvasc) 10 mg PO DAILY [facility] Last Admin: 02/17/17 09:49 Dose: Not Given Donepezil HCl (Aricept) 5 mg PO HS TOD PRN Reason: Protocol Last Admin: 02/16/17 21:46 Dose: 5 mg Montelukast Sodium (Singulair) 10 mg PO DAILY [facility] PRN Reason: Protocol Last Admin: 02/17/17 09:46 Dose: 10 mg Tramadol HCl (Ultram) 50 mg PO TID PRN; Protocol PRN Reason: Pain, moderate (4-7) Last Admin: 02/17/17 06:10 Dose: 50 mg Vancomycin HCl (Vancocin 25 Mg/Ml (Oral Use)) 250 mg PO QID [facility] PRN Reason: Protocol Last Admin: 02/17/17 09:50 Dose: 250 mg - Constitutional Appears: No Acute Distress - Head Exam Head Exam: ATRAUMATIC, NORMOCEPHALIC - Eye Exam Eye Exam: Normal appearance - ENT Exam ENT Exam: Mucous Membranes Moist - Respiratory Exam Respiratory Exam: NORMAL BREATHING PATTERN - Cardiovascular Exam Cardiovascular Exam: REGULAR RHYTHM - GI/Abdominal Exam GI & Abdominal Exam: Soft. absent: Distended, Firm, Guarding, Rigid, Tenderness , Mass, Rebound - Neurological Exam Neurological Exam: Alert, Awake - Psychiatric Exam Psychiatric exam: Normal Affect, Normal Mood - Skin Skin Exam: Dry, Intact, Normal Color, Warm Assessment and Plan - Assessment and Plan (Free Text) Plan: 66 F with R diaphragmatic hernia -Patient is Asymptomatic with multiple comorbidities -No surgical intervention needed at this time -Management as per primary -DW Dr. Abbey Wilson PGY1
--- NOTE | 2017-02-17 14:26 | PN ---
DATE: 02/17/2017 SUBJECTIVE: The patient is seen earlier this morning at 03:16, uneventful night. No fever and no chills. PHYSICAL EXAMINATION: VITAL SIGNS: Temperature is 97, blood pressure is 100/60, respiratory rate of 18, and heart rate of 69. HEENT: Unremarkable. NECK: Supple. LUNGS: Have decreased breath sounds. HEART: Normal S1 and S2. ABDOMEN: Soft and nontender. LABORATORY DATA: Reveals the patient's labs were reviewed and review of the orders reveals the patient to be on p.o. vancomycin. ASSESSMENT AND PLAN: A 66-year-old female with rheumatoid arthritis, chronic obstructive lung disease, diverticulitis, anxiety, and depression, who was admitted with severe sepsis secondary to severe pseudomembranous colitis and acute kidney injury, which has resolved, currently on p.o. vancomycin complete the p.o. vancomycin for 14 days. Tho Auguste MD
[2017-02-18 07:11] LABS: HEMATOCRIT 34.3 % (36.0-48.0); MEAN CELL VOLUME 87.9 fl (80.0-105.0); MEAN CORPUSCULAR HEMOGLOBIN 28.7 pg (25.0-35.0); MEAN CORPUSCULAR HGB CONC 32.7 g/dl (31.0-37.0); MEAN PLATELET VOLUME 9.9 fl (7.0-11.0); WHITE BLOOD COUNT 5.2 10^3/ul (4.5-11.0)
[2017-02-18 07:20] LABS: ALB/GLOB RATIO 1.2 (1.1-1.8); ALKALINE PHOSPHATASE 54 U/L (38-126); ALT/SGPT 20 U/L (7-56); AST/SGOT 51 U/L (14-36); BILIRUBIN,TOTAL 0.4 mg/dL (0.2-1.3); BLOOD UREA NITROGEN 7 mg/dL (7-21); CALCIUM 8.6 mg/dL (8.4-10.5); CARBON DIOXIDE 33 mmol/L (21-33); CHLORIDE 105 mmol/L (98-107); GFR AFRICAN-AMERICAN > 60; GLUCOSE,RANDOM 83 mg/dL (70-110); POTASSIUM 3.3 mmol/L (3.6-5.0); SODIUM 143 mmol/L (132-148); TOTAL PROTEIN 5.1 g/dL (5.8-8.3)
[2017-02-18] MEDS ORDERED: Potassium Chloride 20 mEq ER Tab PO ONE (07:32)
[2017-02-18] MEDS: Vancomycin 25 MG/ML PO SCH ×4 (10:39→21:26)
--- NOTE | 2017-02-18 15:37 | PN ---
DATE: 02/18/2017 SUBJECTIVE: The patient is in bed, in no acute distress, nontoxic. PHYSICAL EXAMINATION: VITAL SIGNS: On exam, temperature is 97, blood pressure is 106/50, respiratory rate of 20, heart rate of 97. HEENT: Unremarkable. NECK: Supple. LUNGS: Decreased breath sounds. HEART: Normal S1 and S2. ABDOMEN: Soft and nontender. LABORATORY EXAMINATION: Reveals a white count of 5.2, hemoglobin of 11, platelets of 258. Chemistry reveals a BUN of 7, creatinine of 0.7. ASSESSMENT AND PLAN: A 66-year-old female, rheumatoid arthritis, chronic obstructive lung disease, diverticulitis, anxiety and depression with severe sepsis secondary to severe pseudomembranous colitis, acute kidney injury which has resolved and currently on p.o. vancomycin. Recommend completing 14 days of p.o. vancomycin. Tho Auguste MD
[2017-02-19] MEDS: Vancomycin 25 MG/ML PO SCH ×4 (10:26→21:14)
--- NOTE | 2017-02-19 17:35 | CP.PCM.PN ---
Subjective - Date & Time of Evaluation Date of Evaluation: 02/19/17 Time of Evaluation: 11:25 - Subjective Subjective: Comfortable, not in distress, diarrhea is improved. Objective - Vital Signs/Intake and Output Vital Signs (last 24 hours): Temp Pulse Resp BP Pulse Ox 98.3 F 71 16 113/68 96 02/19/17 05:35 02/19/17 05:35 02/19/17 05:35 02/19/17 05:35 02/19/17 05:35 Intake and Output: 02/19/17 02/19/17 06:59 18:59 Intake Total 360 Balance 360 - Medications Medications: Current Medications Acetaminophen (Tylenol 325mg Tab) 650 mg PO Q4H PRN; Protocol PRN Reason: Fever >100.4 F Alprazolam (Xanax) 0.5 mg PO BID [facility] PRN Reason: Protocol Last Admin: 02/18/17 17:14 Dose: 0.5 mg Amlodipine Besylate (Norvasc) 10 mg PO DAILY [facility] Last Admin: 02/18/17 10:39 Dose: 10 mg Donepezil HCl (Aricept) 5 mg PO HS [facility] PRN Reason: Protocol Last Admin: 02/18/17 21:26 Dose: 5 mg Montelukast Sodium (Singulair) 10 mg PO DAILY [facility] PRN Reason: Protocol Last Admin: 02/18/17 10:39 Dose: 10 mg Tramadol HCl (Ultram) 50 mg PO TID PRN; Protocol PRN Reason: Pain, moderate (4-7) Last Admin: 02/18/17 21:29 Dose: 50 mg Vancomycin HCl (Vancocin 25 Mg/Ml (Oral Use)) 250 mg PO QID [facility] PRN Reason: Protocol Last Admin: 02/18/17 21:26 Dose: 250 mg - Labs Labs: 02/18/17 06:15 02/18/17 06:15 - Constitutional Appears: Non-toxic, No Acute Distress - Head Exam Head Exam: NORMAL INSPECTION - ENT Exam ENT Exam: Mucous Membranes Moist - Neck Exam Neck Exam: absent: Meningismus - Respiratory Exam Respiratory Exam: Decreased Breath Sounds - Cardiovascular Exam Cardiovascular Exam: +S1, +S2 - GI/Abdominal Exam GI & Abdominal Exam: Soft. absent: Tenderness Assessment and Plan - Assessment and Plan (Free Text) Plan: Assessment Severe sepsis due to acute C. diff. colitis history of acute jejunoileitis (enteritis) HTN history of diverticulitis rheumatoid arthritis history of depression COPD with significant smoking history Plan Continue PO Vancomycin (day 6); target 10-14 days Will continue to monitor clinical response
--- NOTE | 2017-02-20 09:48 | PN ---
DATE: 02/20/2017 SUBJECTIVE: I reviewed the clinical course and the current clinical status of the patient with the nursing staff on the floor. The notes over the past several days reviewed in addition to orders and appropriate laboratory data. According to the nurses, the patient's diarrhea has been improving. She is currently on vancomycin, metronidazole for C. difficile colitis. The patient is not experiencing any nausea, vomiting, abdominal pain, or rectal bleeding. Last bowel movement experienced by the patient was soft. Frequency and volume of diarrhea has decreased on current therapeutic protocol. She is being followed by Dr. Auguste from ID department. Since there is no major issues at the current time, I will sign off the case. Please recall if needed. Dyllan Blackwell DO, PhD MTDVee
[2017-02-20] MEDS: Vancomycin 25 MG/ML PO SCH ×4 (10:24→21:12)
--- NOTE | 2017-02-20 14:34 | CP.PCM.PN ---
Subjective - Date & Time of Evaluation Date of Evaluation: 02/20/17 Time of Evaluation: 11:50 - Subjective Subjective: Diarrhea is improved, no fevers. Objective - Vital Signs/Intake and Output Vital Signs (last 24 hours): Temp Pulse Resp BP Pulse Ox 98.3 F 67 18 123/80 93 L 02/19/17 16:15 02/19/17 16:15 02/19/17 16:15 02/20/17 10:23 02/19/17 16:15 Intake and Output: 02/20/17 02/20/17 06:59 18:59 Intake Total 240 Balance 240 - Medications Medications: Current Medications Acetaminophen (Tylenol 325mg Tab) 650 mg PO Q4H PRN; Protocol PRN Reason: Fever >100.4 F Last Admin: 02/20/17 08:22 Dose: 650 mg Alprazolam (Xanax) 0.5 mg PO BID [facility] PRN Reason: Protocol Last Admin: 02/20/17 10:22 Dose: 0.5 mg Amlodipine Besylate (Norvasc) 10 mg PO DAILY [facility] Last Admin: 02/20/17 10:23 Dose: 10 mg Donepezil HCl (Aricept) 5 mg PO HS [facility] PRN Reason: Protocol Last Admin: 02/19/17 21:13 Dose: 5 mg Montelukast Sodium (Singulair) 10 mg PO DAILY [facility] PRN Reason: Protocol Last Admin: 02/20/17 10:23 Dose: 10 mg Tramadol HCl (Ultram) 50 mg PO TID PRN; Protocol PRN Reason: Pain, moderate (4-7) Last Admin: 02/20/17 10:22 Dose: 50 mg Vancomycin HCl (Vancocin 25 Mg/Ml (Oral Use)) 250 mg PO QID [facility] PRN Reason: Protocol Last Admin: 02/20/17 10:24 Dose: 250 mg - Labs Labs: 02/18/17 06:15 02/18/17 06:15 - Constitutional Appears: Non-toxic, No Acute Distress - Head Exam Head Exam: NORMAL INSPECTION - ENT Exam ENT Exam: Mucous Membranes Moist - Neck Exam Neck Exam: absent: Lymphadenopathy, Meningismus - Respiratory Exam Respiratory Exam: Decreased Breath Sounds - Cardiovascular Exam Cardiovascular Exam: +S1, +S2 - GI/Abdominal Exam GI & Abdominal Exam: Soft. absent: Tenderness Assessment and Plan - Assessment and Plan (Free Text) Plan: Assessment Severe sepsis due to acute C. diff. colitis, clinically improving history of acute jejunoileitis (enteritis) HTN history of diverticulitis rheumatoid arthritis history of depression COPD with significant smoking history Plan Continue PO Vancomycin (day 7); target 10-14 days Will continue to monitor clinical response
--- NOTE | 2017-02-20 22:37 | PN ---
DATE: 02/20/2017 SUBJECTIVE: The patient has no complaints of any chest pain. No shortness of breath, headache or dizziness. PHYSICAL EXAMINATION VITAL SIGNS: Temperature is 98.5, pulse is 72, blood pressure is 108/71, respirations is 14. GENERAL: The patient is lying in bed, flat, comfortable. HEENT: No oral lesion. Anicteric sclerae. Moist mucosa. NECK: No JVD, adenopathy, or thyromegaly. CARDIOVASCULAR: S1 and S2, regular. No murmurs, rubs, or gallops. LUNGS: Clear to auscultation bilaterally. No wheeze, rales, or rhonchi. ABDOMEN: Bowel sounds are positive, soft, nontender and nondistended. EXTREMITIES: No cyanosis, clubbing or edema. LABORATORY DATA: Hemoglobin is 11.2, potassium 3.3. ASSESSMENT: 1. Clostridium difficile colitis, improved. 2. Delirium, improved. 3. Urinary tract infection, resolved. 4. Hypertension. 5. Hypokalemia. PLAN: The patient is on amlodipine for hypertension. She is going to be on tramadol as needed for pain. She is on vancomycin for her antibiotics. She is on a regular diet. She is tolerating. Sanchez Lino MD
[2017-02-21] MEDS: Vancomycin 25 MG/ML PO SCH ×4 (11:00→21:02)
[2017-02-21 16:50] VITALS: PULSE 77; RESP 18; TEMP 98.7; O2SAT 96
[2017-02-22 07:33] LABS: HEMATOCRIT 38.5 % (36.0-48.0); MEAN CELL VOLUME 88.7 fl (80.0-105.0); MEAN CORPUSCULAR HEMOGLOBIN 28.1 pg (25.0-35.0); MEAN CORPUSCULAR HGB CONC 31.7 g/dl (31.0-37.0); MEAN PLATELET VOLUME 9.4 fl (7.0-11.0); WHITE BLOOD COUNT 6.3 10^3/ul (4.5-11.0)
[2017-02-22 07:52] LABS: ALB/GLOB RATIO 1.5 (1.1-1.8); ALKALINE PHOSPHATASE 69 U/L (38-126); ALT/SGPT 25 U/L (7-56); AST/SGOT 26 U/L (14-36); BILIRUBIN,TOTAL 0.5 mg/dL (0.2-1.3); BLOOD UREA NITROGEN 11 mg/dL (7-21); CALCIUM 9.3 mg/dL (8.4-10.5); CARBON DIOXIDE 28 mmol/L (21-33); CHLORIDE 106 mmol/L (98-107); GFR AFRICAN-AMERICAN > 60; GLUCOSE,RANDOM 78 mg/dL (70-110); POTASSIUM 3.5 mmol/L (3.6-5.0); SODIUM 145 mmol/L (132-148)
[2017-02-22] MEDS: Vancomycin 25 MG/ML PO SCH (10:09)
[2017-02-22 10:16] VITALS: BP 113/71
[2017-02-22] MEDS ORDERED: Influenza Vaccine 60 mcg/0.5 mL SYR (4YR UP) IM ONE (10:17)
[2017-02-22] MEDS ORDERED: Potassium Chloride 20 mEq ER Tab PO ONE (10:35)
--- NOTE | 2017-02-22 10:59 | DS ---
HISTORY OF PRESENT ILLNESS: The patient is comfortable. She has no complaints of any headaches or dizziness. She came to the transitional care unit for rehab. PHYSICAL EXAMINATION: VITAL SIGNS: Temperature is 98.7, pulse is 77, blood pressure is 101/60, and respirations 18. GENERAL: The patient is lying in bed, flat, comfortable. HEENT: No oral lesion. Anicteric sclerae. Moist mucosa. NECK: No JVD, adenopathy, or thyromegaly. CARDIOVASCULAR: S1 and S2, regular. No murmurs, rubs, or gallops. LUNGS: Clear to auscultation bilaterally. No wheeze, rales, or rhonchi. ABDOMEN: Bowel sounds are positive, soft, nontender and nondistended. EXTREMITIES: No cyanosis, clubbing or edema. ASSESSMENT: 1. Clostridium difficile colitis, resolved. 2. Delirium, improved. 3. Hypertension. 4. Hypokalemia. PLAN: The patient is currently comfortable. She is on Norvasc for hypertension. She is going to be on tramadol for pain. She is on vancomycin, this will be discontinued. She is going to discharge home to followup as an outpatient. CONDITION: Stable. ACTIVITY: Increase as tolerated. Sanchez Lino MD
== END 2017-02-22 11:02 | disposition home or self-care (01) | DRG 872 ==
LOC: TRCU 14:28
PROVIDERS: ADMIT Internal Medicine Nephrology; ATTEND Internal Medicine Nephrology
PROC: F07Z9FZ Gait Training/Functional Ambulation Treatment using Assistive, Adaptive, Supportive or Protective Equipment (ICD-10-PCS; principal; 2017-02-16)
PROC: F07M6ZZ Therapeutic Exercise Treatment of Musculoskeletal System - Whole Body (ICD-10-PCS; 2017-02-16)
PROC: 3E0234Z Introduction of Serum, Toxoid and Vaccine into Muscle, Percutaneous Approach (ICD-10-PCS; 2017-02-22)
DX: A41.9 Sepsis, unspecified organism (principal); N17.9 Acute kidney failure, unspecified; A04.72 Enterocolitis due to Clostridium difficile, not specified as recurrent; F03.90 Unspecified dementia, unspecified severity, without behavioral disturbance, psychotic disturbance, mood disturbance, and anxiety; J44.9 Chronic obstructive pulmonary disease, unspecified; N39.0 Urinary tract infection, site not specified; R65.20 Severe sepsis without septic shock; I10 Essential (primary) hypertension; E87.6 Hypokalemia; F17.200 Nicotine dependence, unspecified, uncomplicated; K21.9 Gastro-esophageal reflux disease without esophagitis; K44.9 Diaphragmatic hernia without obstruction or gangrene; K58.9 Irritable bowel syndrome, unspecified; M06.9 Rheumatoid arthritis, unspecified; F41.9 Anxiety disorder, unspecified; F32.89 Other specified depressive episodes; B95.1 Streptococcus, group B, as the cause of diseases classified elsewhere; Z87.19 Personal history of other diseases of the digestive system; Z23 Encounter for immunization

== ENCOUNTER 2017-04-18 00:11 | Inpatient (IN) | payer MEDICARE, BC ==
--- NOTE | 2017-04-18 00:26 | ED PDOC ---
Arrival/HPI - General Time Seen by Provider: 04/18/17 00:12 Historian: Patient, Family (granddaughter ) - History of Present Illness Narrative History of Present Illness (Text): 04/18/17 00:26 Ofelia Smith is a 66 year old male, whose past medical history includes hypertension, COPD, diverticulitis, anxiety, and depression, presents to the Emergency department via EMS accompanied by her grand daughters complaining of altered mental status prior to arrival. Granddaughter states patient was found wandering in the hallway of the apartment building, disoriented and confused. Patient is alert and oriented to person/place. Patient denies any chest pain, shortness of breath, numbness/weakness/tingling in her extremities, headache, dizziness, fever, chills or any other complaints. PMD: Dr. Lino Time/Duration: 24 hours Symptom Onset: Gradual Symptom Course: Unchanged Activities at Onset: Light Context: Walking, Home Past Medical History - Provider Review Nursing Documentation Reviewed: Yes - Infectious Disease Hx of Infectious Diseases: None - Cardiac Hx Hypertension: Yes - Pulmonary Hx Chronic Obstructive Pulmonary Disease (COPD): Yes - Neurological Hx Neurological Disorder: Yes Hx Dementia: Yes - HEENT Hx HEENT Disorder: No - Renal Hx Renal Disorder: No - Endocrine/Metabolic Hx Endocrine Disorders: No - Hematological/Oncological Hx Cancer: No - Integumentary Hx Dermatological Disorder: No - Musculoskeletal/Rheumatological Hx Falls: Yes - Gastrointestinal Hx Gastrointestinal Disorders: Yes (COLITIS,ENTERITIS,CONSTIPATION,RECTAL BLEED, BOWEL OBSTRUCTION,HEMORRHOIDS) - Genitourinary/Gynecological Hx Genitourinary Disorders: Yes (UTI) Hx Reproductive Disorders: No - Psychiatric Hx Psychophysiologic Disorder: Yes Hx Anxiety: Yes Hx Depression: Yes Hx Emotional Abuse: No Hx Physical Abuse: No Hx Substance Use: No - Anesthesia Hx Anesthesia: Yes Hx Anesthesia Reactions: No Hx Malignant Hyperthermia: No - Suicidal Assessment Feels Threatened In Home Enviroment: No Family/Social History - Physician Review Nursing Documentation Reviewed: Yes Family/Social History: Unknown Family HX Smoking Status: Former Smoker Hx Alcohol Use: No Hx Substance Use: No Allergies/Home Meds Allergies/Adverse Reactions: Allergies No Known Allergies Allergy (Verified 02/15/17 17:18) Home Medications: Home Meds Medication Instructions Recorded Confirmed Donepezil HCl 5 mg PO DAILY 12/20/14 02/15/17 Montelukast [Singulair] 10 mg PO DAILY 12/20/14 02/15/17 Alprazolam [Xanax] 0.5 mg PO BID 03/07/16 02/15/17 amLODIPine [Norvasc] 10 mg PO DAILY 03/07/16 02/15/17 Desvenlafaxine Succinate [Pristiq] 50 mg PO DAILY 02/11/17 02/15/17 Review of Systems - Physician Review All systems were reviewed & negative as marked: Yes - Review of Systems Constitutional: Normal. absent: Fatigue, Fevers Eyes: Normal. absent: Vision Changes ENT: Normal Respiratory: Normal. absent: SOB, Cough Cardiovascular: Normal. absent: Chest Pain Musculoskeletal: Normal. absent: Back Pain, Neck Pain, Joint Swelling, Myalgias Skin: Normal. absent: Rash, Pruritis, Skin Lesions Neurological: Normal. absent: Headache, Dizziness Endocrine: Normal. absent: Diaphoresis Psychiatric: Other (Altered Mental Status ) Physical Exam Vital Signs Reviewed: Yes Vital Signs Temp Pulse Resp BP Pulse Ox 04/18/17 00:22 98.5 F 88 18 131/90 95 Temperature: Afebrile Blood Pressure: Normal Pulse: Regular Respiratory Rate: Normal Appearance: Positive for: Well-Appearing, Non-Toxic, Comfortable Pain Distress: None Mental Status: Positive for: other (Alert, oriented x2 (person and place)) - Systems Exam Head: Present: Atraumatic, Normocephalic Pupils: Present: PERRL Extroacular Muscles: Present: EOMI Conjunctiva: Present: Normal Mouth: Present: Moist Mucous Membranes. No: Dry, Drooling Neck: Present: Normal Range of Motion Respiratory/Chest: Present: Clear to Auscultation, Good Air Exchange. No: Respiratory Distress, Accessory Muscle Use Cardiovascular: Present: Regular Rate and Rhythm, Normal S1, S2. No: Murmurs Abdomen: Present: Normal Bowel Sounds. No: Tenderness, Distention, Peritoneal Signs Back: Present: Normal Inspection Upper Extremity: Present: Normal Inspection. No: Cyanosis, Edema Lower Extremity: Present: Normal Inspection. No: Edema Neurological: Present: GCS=15, CN II-XII Intact, Speech Normal Skin: Present: Warm, Dry, Normal Color. No: Rashes Psychiatric: Present: Alert (Alert). No: Oriented x 3 (Oriented x2 (person and place)) Medical Decision Making ED Course and Treatment: 04/18/17 00:27 Impression: 66 year old female presents to the Emergency department via EMS complaining of altered mental status. Plan: -- CT head w/o contrast -- EKG -- Labs -- Chest X-ray -- Reassess and disposition Prior Visits: Notes and results from previous visits were reviewed. On 02/11/17, patient presented to the Emergency department complaining of altered mental status. Patient was admitted to the hospital for further evaluation. Progress Notes: 04/18/17 01:22 EKG: Ordered, reviewed, and independently interpreted the EKG. Rate : 73 BPM Rhythm : NSR Interpretation : Non-specific T-wave changes. 04/18/17 04:08 CT head reviewed, shows: Brain: No acute intracranial hemorrhage. Age-appropriate periventricular white matter disease. No edema. Ventricles: Age-appropriate ventriculomegaly. Bones: No acute displaced fracture. Sinuses: Unremarkable as visualized. No acute sinusitis. Mastoid air cells: Unremarkable as visualized. No mastoid effusion. IMPRESSION: No acute intracranial hemorrhage, or suspicious mass effect. 04/18/17 04:21 Chest X-ray reviewed, shows unchanged diaphragmatic hernia from previous Chest X -ray. Otherwise, no acute processes. 04/18/17 04:[address] Lino, who is aware and agrees with plan. Patient will go to remote Telemetry Observation for altered mental status. Requests Dr. Kimball on consult. - Lab Interpretations Lab Results: 04/18/17 01:15 04/18/17 01:15 Lab Results 04/18/17 01:15: WBC 5.8, RBC 4.29, Hgb 12.5, Hct 38.3, MCV 89.3, MCH 29.1, MCHC 32.6, RDW 15.2 H, Plt Count 231, MPV 9.4 04/18/17 01:15: Sodium 145, Potassium 3.4 L, Chloride 108 H, Carbon Dioxide 28, Anion Gap 12, BUN 18, Creatinine 1.0, Est GFR ( Amer) > 60, Est GFR (Non- Af Amer) 55, Random Glucose 85, Calcium 9.4, Total Bilirubin 1.7 H, AST 38 H D, ALT 26, Alkaline Phosphatase 82, Lactate Dehydrogenase 509, Total Creatine Kinase 156, Troponin I < 0.01, Total Protein 6.9, Albumin 4.1, Globulin 2.8, Albumin/Globulin Ratio 1.5 04/18/17 01:15: PT 10.9, INR 1.00, APTT 27.8 I have reviewed the lab results: Yes - RAD Interpretation Radiology Orders: 04/18/17 00:48 HEAD W/O CONTRAST [CT] Stat CHEST PORTABLE [RAD] Stat Flight Crew Time Clerk: ED Physician - EKG Interpretation Interpreted by ED Physician: Yes Type: 12 lead EKG - Scribe Statement The provider has reviewed the documentation as recorded by the Sergio Rogers training under Torrie Pimentel. All medical record entries made by the Sergio were at my direction and personally dictated by me. I have reviewed the chart and agree that the record accurately reflects my personal performance of the history, physical exam, medical decision making, and the department course for this patient. I have also personally directed, reviewed, and agree with the discharge instructions and disposition. Disposition/Present on Arrival - Present on Arrival Any Indicators Present on Arrival: No History of DVT/PE: No History of Uncontrolled Diabetes: No Urinary Catheter: No History Surgical Site Infection Following: None - Disposition Have Diagnosis and Disposition been Completed?: Yes Diagnosis: Altered mental status Disposition: HOSPITALIZED Disposition Time: 04:52 Patient Plan: Observation Patient Problems: Current Active Problems Problem Status Onset Altered mental status Acute Condition: STABLE
[2017-04-18 01:27] LABS: HEMATOCRIT 38.3 % (36.0-48.0); MEAN CELL VOLUME 89.3 fl (80.0-105.0); MEAN CORPUSCULAR HEMOGLOBIN 29.1 pg (25.0-35.0); MEAN CORPUSCULAR HGB CONC 32.6 g/dl (31.0-37.0); MEAN PLATELET VOLUME 9.4 fl (7.0-11.0); RED CELL DISTRIBUTION WIDTH 15.2 % (11.5-14.5); WHITE BLOOD COUNT 5.8 10^3/ul (4.5-11.0)
[2017-04-18 01:35] LABS: ALB/GLOB RATIO 1.5 (1.1-1.8); ALKALINE PHOSPHATASE 82 U/L (38-126); ALT/SGPT 26 U/L (7-56); AST/SGOT 38 U/L (14-36); BILIRUBIN,TOTAL 1.7 mg/dL (0.2-1.3); BLOOD UREA NITROGEN 18 mg/dL (7-21); CALCIUM 9.4 mg/dL (8.4-10.5); CARBON DIOXIDE 28 mmol/L (21-33); CHLORIDE 108 mmol/L (98-107); GFR AFRICAN-AMERICAN > 60; GLUCOSE,RANDOM 85 mg/dL (70-110); POTASSIUM 3.4 mmol/L (3.6-5.0); SODIUM 145 mmol/L (132-148); TOTAL PROTEIN 6.9 g/dL (5.8-8.3)
[2017-04-18 01:46] LABS: PARTIAL THROMBOPLASTIN TIME 27.8 Seconds (25.1-36.5); TROPONIN I < 0.01 ng/mL
--- NOTE | 2017-04-18 04:06 | CT ---
EXAM: CT Head Without Intravenous Contrast CLINICAL HISTORY: 66 years old, female; Signs and symptoms; Altered mental status/memory loss; Patient HX: AMS TECHNIQUE: Axial computed tomography images of the head/brain without intravenous contrast. All CT scans at this facility use one or more dose reduction techniques, viz.: automated exposure control; ma/kV adjustment per patient size (including targeted exams where dose is matched to indication; i.e. head); or iterative reconstruction technique. COMPARISON: CT - HEAD W/O CONTRAST 2017-02-11 19:59 FINDINGS: Brain: No acute intracranial hemorrhage. Age-appropriate periventricular white matter disease. No edema. Ventricles: Age-appropriate ventriculomegaly. Bones: No acute displaced fracture. Sinuses: Unremarkable as visualized. No acute sinusitis. Mastoid air cells: Unremarkable as visualized. No mastoid effusion. IMPRESSION: No acute intracranial hemorrhage, or suspicious mass effect.
--- NOTE | 2017-04-18 08:38 | RAD ---
HISTORY: ams COMPARISON: Chest x-ray performed 02/11/17 TECHNIQUE: Chest, one view. FINDINGS: LUNGS: Patient with previously demonstrated diaphragmatic hernia on the right. No focal consolidation. Please note that chest x-ray has limited sensitivity for the detection of pulmonary masses. PLEURA: No significant pleural effusion identified. No definite pneumothorax . CARDIOVASCULAR: Heart size appears within normal limits. Dense atherosclerotic calcification of the aorta. OSSEOUS STRUCTURES: Osseous demineralization. Degenerative changes. VISUALIZED UPPER ABDOMEN: Unremarkable. OTHER FINDINGS: None. IMPRESSION: Patient with previously demonstrated diaphragmatic hernia on the right.
[2017-04-18 11:59] VITALS: BMI 30.9
--- NOTE | 2017-04-18 16:03 | CARD ---
APPROVED REPORT EKG Measurement Heart [id number] <Conclusion> Normal sinus rhythm T wave abnormality, consider anterior ischemia Abnormal ECG
--- NOTE | 2017-04-18 21:55 | HP ---
CHIEF COMPLAINT AND HISTORY OF PRESENT ILLNESS: This is a 66-year-old female who is coming into the hospital with confusion. The patient has a past medical history of hypertension, COPD, diverticulitis, anxiety. The patient was brought in by her granddaughter who said that she was having changes in her mental status. She is not able to give much information about why she came in. She is asking about her sister who she has been looking for. Her sister is actually admitted to the Psychiatric Unit. The patient also is tangential in her thinking, she is not able to focus on questions. The patient denies any chest pain or shortness of breath. No nausea. No vomiting. No fever, headaches, or chills. REVIEW OF SYSTEMS: She has no complaints in her review of symptoms other than that what was mentioned. ALLERGIES: NO KNOWN DRUG ALLERGIES. HOME MEDICATIONS: Singulair, Xanax, Norvasc, Pristiq, and donepezil. PAST MEDICAL HISTORY: Hypertension, COPD, diverticulitis, anxiety, depression. SOCIAL HISTORY: She is a former smoker. She denies alcohol or drug use. FAMILY HISTORY: Noncontributory. PHYSICAL EXAMINATION: VITAL SIGNS: Temperature is 98.5, pulse of 76, blood pressure is 117/80, respirations 18, O2 saturation is 95%. GENERAL: The patient lying in bed, uncomfortable, and in no acute distress. HEENT: Atraumatic and normocephalic. Anicteric sclerae. Moist mucosa. [place] conjunctivae. No oral lesions. NECK: No JVD, anterior and posterior adenopathy, thyromegaly, or bruits. CARDIOVASCULAR: S1 and S2 regular. No murmur, rubs, or gallop. LUNGS: Clear to auscultation bilaterally. No wheezes, rales, or rhonchi. ABDOMEN: Bowel sounds are positive. Soft, nontender and nondistended. No hepatosplenomegaly. No rebound and no guarding EXTREMITIES: No cyanosis, clubbing, or edema. NEUROLOGIC: No facial asymmetry. Tongue is midline. No uvula deviation. Power is 5/5 upper extremity and lower extremity. Sensation intact in upper extremity and lower extremity. PSYCHIATRIC: Patient is tangential in her answers. She denies any depression or anxiety. No suicidal ideation. GENITOURINARY: No CVA tenderness. VASCULAR: 2+ pulses in the carotid pulses and pedal pulses. SKIN: No erythema or nodules SPINE: Shows normal curvature. LABORATORY DATA: Have been reviewed. White count of 5.8, hemoglobin is 12.5. Chemistry shows potassium of 3.4, creatinine is 1.0. EKG done shows sinus rhythm, normal axis, nonspecific ST changes. Chest x-ray done shows a diaphragmatic hernia in the right. CT of the head done shows no acute intracranial findings. ASSESSMENT: 1. Delirium. 2. Hypokalemia. 3. Hypertension. 4. Anxiety. PLAN: The patient is going to be admitted to the hospital. She has a blood culture that has been ordered and also urine cultures. The patient is going to need to continue her MiraLax. The patient is on Protonix and may require Synthroid for hypothyroidism. Sanchez Lino MD
[2017-04-19 08:06] LABS: BLOOD UREA NITROGEN 18 mg/dL (7-21); CARBON DIOXIDE 27 mmol/L (21-33); CHLORIDE 112 mmol/L (98-107); GFR AFRICAN-AMERICAN > 60; GLUCOSE,RANDOM 85 mg/dL (70-110); POTASSIUM 3.2 mmol/L (3.6-5.0); SODIUM 146 mmol/L (132-148)
[2017-04-19] MEDS ORDERED: Potassium Chloride 20 mEq ER Tab PO ONE ×2 (08:48→15:56)
--- NOTE | 2017-04-19 09:11 | PN ---
DATE: 04/19/2017 SUBJECTIVE: The patient remains confused. She does not know where she is. She is on one-to-one. She was given Xanax yesterday to help her agitation. PHYSICAL EXAMINATION: VITAL SIGNS: Temperature is 98.9, pulse is 78, blood pressure is 125/72, and respirations are 20. GENERAL: The patient is lying in bed, flat, comfortable. HEENT: No oral lesion. Anicteric sclerae. Moist mucosa. NECK: No JVD, adenopathy, or thyromegaly. CARDIOVASCULAR: S1 and S2, regular. No murmurs, rubs, or gallops. LUNGS: Clear to auscultation bilaterally. No wheeze, rales, or rhonchi. ABDOMEN: Bowel sounds are positive, soft, nontender and nondistended. EXTREMITIES: No cyanosis, clubbing or edema. LABORATORY DATA: Potassium is 3.2. ASSESSMENT: 1. Delirium. 2. Hypokalemia. 3. Hypertension. 4. Anxiety. PLAN: The patient is currently comfortable. She is on Xanax. She is on a heart-healthy diet. Awaiting for Psychiatry to evaluate the patient. The patient may need psychiatric admission. At this point, the patient's potassium is low, I will replace her potassium. Sanchez Lino MD
[2017-04-19 11:57] LABS: BASO # 0.1 K/mm3 (0.0-2.0); BASO % 2.1 % (0.0-3.0); EOS # 0.2 (0.0-0.7); EOS % 3.2 % (1.5-5.0); GRAN # 3.01 (1.4-6.5); GRAN % 63.5 % (50.0-68.0); HEMATOCRIT 38.6 % (36.0-48.0); LYMPH # 1.2 (1.2-3.4); LYMPH % 25.5 % (22.0-35.0); MEAN CELL VOLUME 90.2 fl (80.0-105.0); MEAN CORPUSCULAR HEMOGLOBIN 28.7 pg (25.0-35.0); MEAN CORPUSCULAR HGB CONC 31.9 g/dl (31.0-37.0); MEAN PLATELET VOLUME 9.5 fl (7.0-11.0); MONO # 0.3 (0.1-0.6); MONO % 5.7 % (1.0-6.0); RED CELL DISTRIBUTION WIDTH 15.3 % (11.5-14.5); WHITE BLOOD COUNT 4.7 10^3/ul (4.5-11.0)
[2017-04-19 12:09] LABS: MAGNESIUM 2.2 mg/dL (1.7-2.2)
[2017-04-19 12:18] LABS: TROPONIN I < 0.01 ng/mL
--- NOTE | 2017-04-19 13:53 | CP.PCM.CON ---
<Roma Mar - Last Filed: 04/19/17 15:42> History of Present Illness - History of Present Illness History of Present Illness: [id number] Neurology consult note for Dr. Rodriguez's service 66 year old female with past medical history of hypertension, COPD, diverticulitis, anxiety, and depression, presents to the Emergency department via EMS accompanied by her grand daughters complaining of altered mental status prior to arrival. Patient does not recall why she is in the hospital, she states that she woke up here. Per ED note she was accompanied by her granddaughter who states patient was found wandering in the hallway of the apartment building, disoriented and confused. This morning patient is alert and oriented to person, place and time. She denies any previous history of dementia. She denies any chest pain, shortness of breath, numbness, weakness, or tingling in her extremities, headache, dizziness, fever, chills or any other complaints PMH: hypertension, COPD, diverticulitis, anxiety, and depression, colitis, bowel obstruction PSH: none social history: former smoker, denies alcohol use, illicit drug use allergy: NKDA Review of Systems - Review of Systems All systems: reviewed and no additional remarkable complaints except (as stated in HPI) Past Patient History - Infectious Disease Hx of Infectious Diseases: None - Past Social History Smoking Status: Former Smoker - CARDIAC Hx Hypertension: Yes - PULMONARY Hx Chronic Obstructive Pulmonary Disease (COPD): Yes - NEUROLOGICAL Hx Neurological Disorder: Yes Hx Dementia: Yes - HEENT Hx HEENT Problems: No - RENAL Hx Chronic Kidney Disease: No - ENDOCRINE/METABOLIC Hx Endocrine Disorders: No - HEMATOLOGICAL/ONCOLOGICAL Hx Cancer: No - INTEGUMENTARY Hx Dermatological Problems: No - MUSCULOSKELETAL/RHEUMATOLOGICAL Hx Falls: Yes - GASTROINTESTINAL Hx Gastrointestinal Disorders: Yes (COLITIS,ENTERITIS,CONSTIPATION,RECTAL BLEED, BOWEL OBSTRUCTION,HEMORRHOIDS) - GENITOURINARY/GYNECOLOGICAL Hx Genitourinary Disorders: Yes (UTI) - PSYCHIATRIC Hx Psychophysiologic Disorder: Yes Hx Anxiety: Yes Hx Depression: Yes Hx Emotional Abuse: No Hx Physical Abuse: No - SURGICAL HISTORY Hx Surgeries: (unable to obtain) - ANESTHESIA Hx Anesthesia: Yes Hx Anesthesia Reactions: No Hx Malignant Hyperthermia: No Meds Allergies/Adverse Reactions: Allergies Allergy/AdvReac Type Severity Reaction Status Date / Time No Known Allergies Allergy Verified 02/15/17 17:18 - Medications Medications: Current Medications Alprazolam (Xanax) 0.5 mg PO BID PRN; Protocol PRN Reason: Anxiety Last Admin: 04/19/17 00:48 Dose: 0.5 mg Arformoterol Tartrate (Brovana) 15 mcg IH [id number] TOD Budesonide (Pulmicort Respules) 0.5 mg IH [id number] TOD Donepezil HCl (Aricept) 5 mg PO HS TOD Montelukast Sodium (Singulair) 10 mg PO HS TOD Physical Exam - Constitutional Appears: Well, No Acute Distress - Head Exam Head Exam: ATRAUMATIC, NORMAL INSPECTION, NORMOCEPHALIC - Eye Exam Eye Exam: EOMI, Normal appearance - ENT Exam ENT Exam: Mucous Membranes Moist - Respiratory Exam Respiratory Exam: Clear to Auscultation Bilateral, NORMAL BREATHING PATTERN. absent: Accessory Muscle Use, Respiratory Distress - Cardiovascular Exam Cardiovascular Exam: REGULAR RHYTHM - Extremities Exam Extremities exam: Positive for: normal inspection - Neurological Exam Neurological exam: Alert, CN II-XII Intact, Oriented x3 - Expanded Neurological Exam Expanded Cranial nerves: EOM's Intact: Normal Cerebellar Function: Finger to Nose: Normal Neuro motor strength exam: Left Upper Extremity: 5, Right Upper Extremity: 5, Left Lower Extremity: 5, Right Lower Extremity: 5 - Skin Skin Exam: Dry, Intact, Normal Color, Warm Results - Vital Signs Recent Vital Signs: Last Vital Signs Temp 98.9 F 04/19/17 06:00 Pulse 78 04/19/17 06:00 Resp 20 04/19/17 06:00 BP 125/72 04/19/17 06:00 Pulse Ox 95 04/19/17 06:00 - Labs Result Diagrams: 04/19/17 11:45 04/19/17 07:30 Labs: Laboratory Results - last 24 hr 04/19/17 04/19/17 04/19/17 07:30 11:45 11:45 WBC RBC Hgb Hct MCV MCH MCHC RDW Plt Count MPV Gran % Lymph % (Auto) [place] % (Auto) Eos % (Auto) Baso % (Auto) Gran # Lymph # [place] # Eos # Baso # ESR Sodium 146 Potassium 3.2 L Chloride 112 H Carbon Dioxide 27 Anion Gap 10 BUN 18 Creatinine 0.8 Est GFR ( Amer) > 60 Est GFR (Non-Af Amer) > 60 Random Glucose 85 Calcium 9.0 Magnesium 2.2 Troponin I < 0.01 TSH 3rd Generation 1.21 04/19/17 11:45 WBC 4.7 RBC 4.28 Hgb 12.3 Hct 38.6 MCV 90.2 MCH 28.7 MCHC 31.9 RDW 15.3 H Plt Count 228 MPV 9.5 Gran % 63.5 Lymph % (Auto) 25.5 [place] % (Auto) 5.7 Eos % (Auto) 3.2 Baso % (Auto) 2.1 Gran # 3.01 Lymph # 1.2 [place] # 0.3 Eos # 0.2 Baso # 0.10 ESR 15 Sodium Potassium Chloride Carbon Dioxide Anion Gap BUN Creatinine Est GFR ( Amer) Est GFR (Non-Af Amer) Random Glucose Calcium Magnesium Troponin I TSH 3rd Generation Assessment & Plan - Assessment and Plan (Free Text) Assessment: 66 year old female with past medical history of hypertension, COPD, diverticulitis, anxiety, and depression, presents to the Emergency department with altered mental status most likely due to underlying dementia - CT head did not show any acute changes - TSH within normal limits - avoid sedative medication to prevent deterioration of mental status - continue donepezil - PT/OT case reviewed and discussed with attending <Malcolm Rodriguez - Last Filed: 04/19/17 23:04> Meds - Medications Medications: Current Medications Alprazolam (Xanax) 0.5 mg PO BID PRN; Protocol PRN Reason: Anxiety Last Admin: 04/19/17 22:56 Dose: 0.5 mg Arformoterol Tartrate (Brovana) 15 mcg IH [id number] [facility] Last Admin: 04/19/17 20:57 Dose: 15 mcg Budesonide (Pulmicort Respules) 0.5 mg IH [id number] [facility] Last Admin: 04/19/17 20:57 Dose: 0.5 mg Donepezil HCl (Aricept) 5 mg PO HS [facility] Last Admin: 04/19/17 21:58 Dose: 5 mg Montelukast Sodium (Singulair) 10 mg PO HS [facility] Last Admin: 04/19/17 21:58 Dose: 10 mg Results - Vital Signs Recent Vital Signs: Last Vital Signs Temp 97.9 F 04/19/17 16:00 Pulse 68 04/19/17 16:00 Resp 20 04/19/17 16:00 BP 115/77 04/19/17 16:00 Pulse Ox 96 04/19/17 16:00 - Labs Result Diagrams: 04/19/17 11:45 04/19/17 07:30 Labs: Laboratory Results - last 24 hr 04/19/17 04/19/17 04/19/17 07:30 11:45 11:45 WBC RBC Hgb Hct MCV MCH MCHC RDW Plt Count MPV Gran % Lymph % (Auto) [place] % (Auto) Eos % (Auto) Baso % (Auto) Gran # Lymph # [place] # Eos # Baso # ESR Sodium 146 Potassium 3.2 L Chloride 112 H Carbon Dioxide 27 Anion Gap 10 BUN 18 Creatinine 0.8 Est GFR ( Amer) > 60 Est GFR (Non-Af Amer) > 60 Random Glucose 85 Calcium 9.0 Magnesium 2.2 Troponin I < 0.01 C-React Prot High Sens TSH 3rd Generation 1.21 04/19/17 04/19/17 11:45 11:45 WBC 4.7 RBC 4.28 Hgb 12.3 Hct 38.6 MCV 90.2 MCH 28.7 MCHC 31.9 RDW 15.3 H Plt Count 228 MPV 9.5 Gran % 63.5 Lymph % (Auto) 25.5 [place] % (Auto) 5.7 Eos % (Auto) 3.2 Baso % (Auto) 2.1 Gran # 3.01 Lymph # 1.2 [place] # 0.3 Eos # 0.2 Baso # 0.10 ESR 15 Sodium Potassium Chloride Carbon Dioxide Anion Gap BUN Creatinine Est GFR ( Amer) Est GFR (Non-Af Amer) Random Glucose Calcium Magnesium Troponin I C-React Prot High Sens 0.43 L TSH 3rd Generation Attending/Attestation - Attestation I have personally seen and examined this patient.: Yes I have fully participated in the care of the patient.: Yes I have reviewed all pertinent clinical information: Yes
--- NOTE | 2017-04-19 18:58 | CP.PCM.PCO ---
Physician Communication Note - Physician Communication Note Physician Communication Note: due to high volume of consults, pt will be seen tomorrow, no agitation
[2017-04-19] MEDS: Arformoterol 15 mcg/2 ml Inh Sol IH SCH (20:57)
[2017-04-19] MEDS: Budesonide 0.5 mg/2 ml Inhal Susp UD IH SCH (20:57)
[2017-04-19] MEDS ORDERED: Fluticasone-Salmeterol 250-50mcg Diskus IH SCH (22:00)
--- NOTE | 2017-04-19 23:13 | CP.PCM.PCO ---
Assessment & Plan - Assessment and Plan (Free Text) Assessment: NEURO COMMUNICATION NOTE: IMPRESSION: DELIRIUM WITH UNDERLYING COGNITIVE IMPAIRMENT. PLAN: DELIRIUM PRECAUTIONS. AVOID SEDATIVE MEDS. MONITOR ELECTROLYTES. THIAMINE 100 MG PO DAILY SEROQUEL 25 MG PO QHS IF AGITATION PERSISTS. [facility] PLACEMENT. THANK YOU ELIE ALLEN.
[2017-04-20 06:49] LABS: HEMATOCRIT 36.4 % (36.0-48.0); MEAN CELL VOLUME 90.3 fl (80.0-105.0); MEAN CORPUSCULAR HEMOGLOBIN 28.8 pg (25.0-35.0); MEAN CORPUSCULAR HGB CONC 31.9 g/dl (31.0-37.0); MEAN PLATELET VOLUME 9.5 fl (7.0-11.0); RED CELL DISTRIBUTION WIDTH 15.2 % (11.5-14.5)
[2017-04-20] MEDS: Budesonide 0.5 mg/2 ml Inhal Susp UD IH SCH ×2 (07:29→21:02)
[2017-04-20] MEDS: Arformoterol 15 mcg/2 ml Inh Sol IH SCH ×2 (07:29→21:02)
[2017-04-20 07:32] LABS: ALB/GLOB RATIO 1.4 (1.1-1.8); ALKALINE PHOSPHATASE 70 U/L (38-126); ALT/SGPT 28 U/L (7-56); AST/SGOT 28 U/L (14-36); BILIRUBIN,TOTAL 0.9 mg/dL (0.2-1.3); BLOOD UREA NITROGEN 16 mg/dL (7-21); CALCIUM 8.9 mg/dL (8.4-10.5); CARBON DIOXIDE 24 mmol/L (21-33); CHLORIDE 115 mmol/L (98-107); GFR AFRICAN-AMERICAN > 60; GLUCOSE,RANDOM 90 mg/dL (70-110); MAGNESIUM 2.1 mg/dL (1.7-2.2); POTASSIUM 4.4 mmol/L (3.6-5.0); SODIUM 146 mmol/L (132-148); TOTAL PROTEIN 6.1 g/dL (5.8-8.3)
--- NOTE | 2017-04-20 10:03 | CP.PCM.PN ---
<Roma Mar - Last Filed: 04/20/17 16:02> Subjective - Date & Time of Evaluation Date of Evaluation: 04/20/17 Time of Evaluation: 10:01 - Subjective Subjective: PGY-2 Neurology progress note for Dr. Rodriguez's service Patient seen and examined at bedside, no acute distress. Patient is alert and oriented to person, place, time and situation. She denies any pain, states that she is tired. Patient is on one to one over night, no issues. Objective - Vital Signs/Intake and Output Vital Signs (last 24 hours): Temp Pulse Resp BP Pulse Ox 98.0 F 69 20 126/81 94 L 04/20/17 07:30 04/20/17 07:30 04/20/17 07:30 04/20/17 07:30 04/20/17 07:30 Intake and Output: 04/20/17 04/20/17 06:59 18:59 Intake Total 720 Output Total 0 Balance 720 - Medications Medications: Current Medications Alprazolam (Xanax) 0.5 mg PO BID PRN; Protocol PRN Reason: Anxiety Last Admin: 04/19/17 22:56 Dose: 0.5 mg Arformoterol Tartrate (Brovana) 15 mcg [id number] Last Admin: 04/20/17 07:29 Dose: 15 mcg Budesonide (Pulmicort Respules) 0.5 mg [facility] [id number] [facility] Last Admin: 04/20/17 07:29 Dose: 0.5 mg Donepezil HCl (Aricept) 5 mg PO HS [facility] Last Admin: 04/19/17 21:58 Dose: 5 mg Montelukast Sodium (Singulair) 10 mg PO HS [facility] Last Admin: 04/19/17 21:58 Dose: 10 mg Quetiapine Fumarate (Seroquel) 12.5 mg PO HS PRN; Protocol PRN Reason: psychosis/agitation - Labs Labs: 04/20/17 06:15 04/20/17 06:15 PT 10.9 SECONDS (9.4-12.5) 04/18/17 01:15 INR 1.00 (0.93-1.08) 04/18/17 01:15 APTT 27.8 Seconds (25.1-36.5) 04/18/17 01:15 - Constitutional Appears: Well, No Acute Distress - Head Exam Head Exam: ATRAUMATIC, NORMAL INSPECTION, NORMOCEPHALIC - Eye Exam Eye Exam: EOMI, Normal appearance - ENT Exam ENT Exam: Mucous Membranes Moist - Respiratory Exam Respiratory Exam: Clear to Ausculation Bilateral, NORMAL BREATHING PATTERN. absent: Rhonchi, Wheezes, Respiratory Distress - Cardiovascular Exam Cardiovascular Exam: REGULAR RHYTHM - Neurological Exam Neurological Exam: Alert, Awake, CN II-XII Intact, Oriented x3 Neuro motor strength exam: Left Upper Extremity: 5, Right Upper Extremity: 5, Left Lower Extremity: 5, Right Lower Extremity: 5 - Skin Skin Exam: Dry, Intact, Normal Color, Warm Assessment and Plan - Assessment and Plan (Free Text) Assessment: 66 year old female with past medical history of hypertension, COPD, diverticulitis, anxiety, and depression, presents to the Emergency department with altered mental status most likely due to delirium with underlying cognitive impairment. - CT head did not show any acute changes - TSH within normal limits - avoid sedative medication to prevent deterioration of mental status - continue donepezil - continue seroquel HS prn for agitation - continue thiamine 100mg daily - delirium precautions - monitor electrolytes, replace as needed - PT/OT - consider subacute rehab or shelter placement thank you for the consult please reconsult if needed case reviewed and discussed with attending <Malcolm Rodriguez - Last Filed: 04/20/17 17:05> Objective - Vital Signs/Intake and Output Vital Signs (last 24 hours): Temp Pulse Resp BP Pulse Ox 98.0 F 69 20 126/81 94 L 04/20/17 07:30 04/20/17 07:30 04/20/17 07:30 04/20/17 07:30 04/20/17 07:30 Intake and Output: 04/20/17 04/20/17 06:59 18:59 Intake Total 720 840 Output Total 0 Balance 720 840 - Medications Medications: Current Medications Alprazolam (Xanax) 0.5 mg PO BID PRN; Protocol PRN Reason: Anxiety Last Admin: 04/20/17 11:28 Dose: 0.5 mg Arformoterol Tartrate (Brovana) 15 mcg [facility] [id number] [facility] Last Admin: 04/20/17 07:29 Dose: 15 mcg Budesonide (Pulmicort Respules) 0.5 mg IH [id number] [facility] Last Admin: 04/20/17 07:29 Dose: 0.5 mg Donepezil HCl (Aricept) 5 mg PO HS TOD Last Admin: 04/19/17 21:58 Dose: 5 mg Montelukast Sodium (Singulair) 10 mg PO HS TOD Last Admin: 04/19/17 21:58 Dose: 10 mg Quetiapine Fumarate (Seroquel) 12.5 mg PO HS PRN; Protocol PRN Reason: psychosis/agitation - Labs Labs: 04/20/17 06:15 04/20/17 06:15 PT 10.9 SECONDS (9.4-12.5) 04/18/17 01:15 INR 1.00 (0.93-1.08) 04/18/17 01:15 APTT 27.8 Seconds (25.1-36.5) 04/18/17 01:15 Attending/Attestation - Attestation I have personally seen and examined this patient.: Yes I have fully participated in the care of the patient.: Yes I have reviewed all pertinent clinical information, including history, physical exam and plan: Yes
--- NOTE | 2017-04-20 20:05 | PN ---
DATE: 04/20/2017 SUBJECTIVE: The patient has no complaints of any chest pain or shortness of breath. No headaches. She remains confused. PHYSICAL EXAMINATION: VITAL SIGNS: Temperature is 98, pulse is 69, blood pressure is 126/81, and respirations 20. GENERAL: The patient is lying in bed, flat, comfortable. HEENT: No oral lesion. Anicteric sclerae. Moist mucosa. NECK: No JVD, adenopathy, or thyromegaly. CARDIOVASCULAR: S1 and S2, regular. No murmurs, rubs, or gallops. LUNGS: Clear to auscultation bilaterally. No wheeze, rales, or rhonchi. ABDOMEN: Bowel sounds are positive, soft, nontender and nondistended. EXTREMITIES: No cyanosis, clubbing, or edema. LABORATORY DATA: White count of 4.0, hemoglobin 11.6, and creatinine 0.8. ASSESSMENT: 1. Delirium. 2. Hypokalemia, resolved. 3. Hypertension. 4. Anxiety. PLAN: The patient is currently on Singulair. She is going to continue with the Seroquel that was started, however, by psychiatry. The patient remained on one-to-one. I will get physical therapy to continue to see the patient. She may need further psychiatric intervention. We will wait for the input from psychiatry. Sanchez Lino MD
[2017-04-21 02:15] LABS: URINE BILIRUBIN NEGATIVE (NEGATIVE); URINE BLOOD NEGATIVE (NEGATIVE); URINE GLUCOSE (UA) NEGATIVE (NEGATIVE); URINE KETONE NEGATIVE (NEGATIVE); URINE LEUKOCYTE ESTERASE TRACE Leu/uL (NEGATIVE); URINE PROTEIN NEGATIVE mg/dL (<30 mg/dL); URINE UROBILINOGEN 0.2 E.U./dL (<1 E.U./dL)
[2017-04-21 02:24] LABS: URINE APPEARANCE CLEAR (CLEAR); URINE COLOR YELLOW (YELLOW)
[2017-04-21 02:54] LABS: URINE BACTERIA MOD (NEG); URINE EPITHELIAL CELLS 0 - 2 /hpf (0-5); URINE RBC 0 - 2 /hpf (0-2)
--- NOTE | 2017-04-21 03:33 | CON ---
DATE: HISTORY OF PRESENT ILLNESS: The patient is a 66-year-old female with history of hypertension, COPD, diverticulitis. The patient also has questionable history of anxiety and depression. The patient was brought in for evaluation of change in mental status. The patient was found in an apartment building wandering in the hallway disoriented and confused. Psych consult was called for evaluation of change in mental status. This public relations writer is very familiar with this patient from the previous admission here in [place] from the consultation services. The patient has a history of delirium due to urinary tract infection. Previous notes reviewed. The patient was doing well on Seroquel 12.5 mg at nighttime. The patient was seen and examined. The patient is currently on one-to-one. The patient is very confused, does not make any sense. The patient has disorganized thought process. The patient remembers this public relations writer, but this public relations writer cannot exclude that the patient confabulates because the patient was not able to recall under what circumstances the patient saw this public relations writer. The patient denied thoughts of harming herself or others, but reported feeling of "overwhelmed because I'm very confused". Denied intent or plan. The patient also was preoccupied with the pain medication, tramadol. The patient is aware that she is on Xanax. This public relations writer educated the patient about Seroquel at nighttime, and the patient is willing to take that medication. The patient was feeling comfortable to take that medication because the patient was taking that Seroquel in the past. Reports reviewed. The patient was also seen by Dr. Rodriguez. Discussed with advanced nurse practitioner about plan. This public relations writer reviewed vital signs, seems to be stable. MEDICATIONS: Reviewed. LABS: Reviewed. The patient has C-reactive protein low. Hematology seems to be within normal limits. This public relations writer advised nurse practitioner to put order for urinalysis to rule out any urinary tract infection. MENTAL STATUS EXAMINATION: The patient appears to be alert, intermittent eye contact. Speech was low volume, but overproductive. The patient was emotionally labile. Mood described "I don't know". Affect was tearful. Thought process disorganized. Thought content, the patient appears to be disorganized and psychotic, but more on confused side. Insight and judgment impaired. Impulses are unpredictable. IMPRESSION: Most likely, the patient is in delirium stage; as per history, the patient has dementia. PLAN: Urinalysis should be obtained. Seroquel 12.5 mg at nighttime will be started. The patient prone to have delirium as it was in the past. The patient's family need to be involved. We need to discuss power of real estate associate attorney because in the future we need to have person to discuss treatment plan because most likely the patient has delirium and dementia. Please continue one-to-one for now. We will follow up and advise the patient. Kristel Kimball MD
[2017-04-21] MEDS: Budesonide 0.5 mg/2 ml Inhal Susp UD IH SCH ×2 (07:40→19:43)
[2017-04-21] MEDS: Arformoterol 15 mcg/2 ml Inh Sol IH SCH ×2 (07:40→19:43)
--- NOTE | 2017-04-21 10:31 | PN ---
DATE: 04/21/2017 SUBJECTIVE: The patient has no complaints of any chest pain or shortness of breath. She is more awake and alert. She does know the day of the week. PHYSICAL EXAMINATION: VITAL SIGNS: Temperature is 98, pulse is 62, blood pressure 104/59, and respirations 20. GENERAL: The patient is lying in bed, flat, comfortable. HEENT: No oral lesion. Anicteric sclerae. Moist mucosa. NECK: No JVD, adenopathy, or thyromegaly. CARDIOVASCULAR: S1 and S2, regular. No murmurs, rubs, or gallops. LUNGS: Clear to auscultation bilaterally. No wheeze, rales, or rhonchi. ABDOMEN: Bowel sounds are positive, soft, nontender, and nondistended. EXTREMITIES: No cyanosis, clubbing, or edema. LABORATORY DATA: White count of 4.0, hemoglobin 11.6. Creatinine 0.8. ASSESSMENT: 1. Delirium, improved. 2. Chronic obstructive pulmonary disease. 3. Hypertension. 4. Anxiety. 5. Hypokalemia, improved. PLAN: The patient is currently comfortable. She was seen by Psychiatry. The patient on Seroquel in the evening as needed. She is on Singulair. She is going to continue her Brovana. She is on a one-to-one sitter. I will discontinue the patient's one-to-one sitter. I will get a TCU evaluation done, she is willing to go. I will get Palliative Care to evaluate the patient for advanced directive management. Sanchez Lino MD
--- NOTE | 2017-04-21 11:42 | CP.PCM.CON ---
History of Present Illness - History of Present Illness History of Present Illness: Palliative consult requested by Dr Jaime Lino Reason: Goals of care /advance care planning 66 year old female with history of HTN, COPD and diverticulitis who presented with altered mental status. She was found wandering in the hallway of her apartment building.Ct of head revealed no acute findings. Chest x ray showed right diaphragmatic hernia, no acute disease. Urine with trace leukocytosis, hypokalemia, elevated AST. PMHx:HTN,COPD,dementia, diverticulitis, UTI,anxiety,depression,delirium Social History Former Smoker, no alcohol or drug use. Single, granddaughter occasionally resides with her. Family History:Non contributory Advance Care Planning:The patient states her son is POA. She does not have and Advanced Directive. Review of Systems: The patient complains of recent loss of memory regarding facts leading up to this admission, she also complains frequent diarrhea alternating with constipation. Other bruno systems review is negative. Past Patient History - Infectious Disease Hx of Infectious Diseases: None - Past Social History Smoking Status: Former Smoker - CARDIAC Hx Hypertension: Yes - PULMONARY Hx Chronic Obstructive Pulmonary Disease (COPD): Yes - NEUROLOGICAL Hx Neurological Disorder: Yes Hx Dementia: Yes - HEENT Hx HEENT Problems: No - RENAL Hx Chronic Kidney Disease: No - ENDOCRINE/METABOLIC Hx Endocrine Disorders: No - HEMATOLOGICAL/ONCOLOGICAL Hx Cancer: No - INTEGUMENTARY Hx Dermatological Problems: No - MUSCULOSKELETAL/RHEUMATOLOGICAL Hx Falls: Yes - GASTROINTESTINAL Hx Gastrointestinal Disorders: Yes (COLITIS,ENTERITIS,CONSTIPATION,RECTAL BLEED, BOWEL OBSTRUCTION,HEMORRHOIDS) - GENITOURINARY/GYNECOLOGICAL Hx Genitourinary Disorders: Yes (UTI) - PSYCHIATRIC Hx Psychophysiologic Disorder: Yes Hx Anxiety: Yes Hx Depression: Yes Hx Emotional Abuse: No Hx Physical Abuse: No - SURGICAL HISTORY Hx Surgeries: (unable to obtain) - ANESTHESIA Hx Anesthesia: Yes Hx Anesthesia Reactions: No Hx Malignant Hyperthermia: No Meds Allergies/Adverse Reactions: Allergies Allergy/AdvReac Type Severity Reaction Status Date / Time No Known Allergies Allergy Verified 02/15/17 17:18 - Medications Medications: Current Medications Alprazolam (Xanax) 0.5 mg PO BID PRN; Protocol PRN Reason: Anxiety Last Admin: 04/21/17 10:25 Dose: 0.5 mg Arformoterol Tartrate (Brovana) 15 mcg IH [id number] [facility] Last Admin: 04/21/17 07:40 Dose: 15 mcg Budesonide (Pulmicort Respules) 0.5 mg IH [id number] [facility] Last Admin: 04/21/17 07:40 Dose: 0.5 mg Donepezil HCl (Aricept) 5 mg PO [facility] Last Admin: 04/20/17 22:25 Dose: 5 mg Montelukast Sodium (Singulair) 10 mg PO [facility] Last Admin: 04/20/17 22:26 Dose: 10 mg Quetiapine Fumarate (Seroquel) 12.5 mg PO HS PRN; Protocol PRN Reason: psychosis/agitation Tramadol HCl (Ultram) 50 mg PO TID PRN PRN Reason: Pain, moderate (4-7) Physical Exam - Constitutional Appears: Cachectic - Head Exam Head Exam: NORMAL INSPECTION - Eye Exam Eye Exam: Normal appearance, PERRL - ENT Exam ENT Exam: Mucous Membranes Moist, Normal Oropharynx - Neck Exam Neck exam: Positive for: Normal Inspection - Respiratory Exam Respiratory Exam: Decreased Breath Sounds, NORMAL BREATHING PATTERN - Cardiovascular Exam Cardiovascular Exam: REGULAR RHYTHM, +S1, +S2 - GI/Abdominal Exam GI & Abdominal Exam: Normal Bowel Sounds, Soft - Extremities Exam Extremities exam: Positive for: normal inspection, pedal pulses present - Back Exam Back exam: NORMAL INSPECTION - Neurological Exam Neurological exam: Alert, Oriented x3 - Psychiatric Exam Psychiatric exam: Anxious - Skin Skin Exam: Dry, Warm - Additional Findings Additional findings: Palliative performance scale rating 60 % Results - Vital Signs Recent Vital Signs: Last Vital Signs Temp 97.9 F 04/21/17 07:30 Pulse 66 04/21/17 07:30 Resp 19 04/21/17 07:30 BP 112/74 04/21/17 07:30 Pulse Ox 97 04/21/17 07:30 - Labs Result Diagrams: 04/20/17 06:15 04/20/17 06:15 Labs: Laboratory Results - last 24 hr 04/20/17 04/21/17 18:30 08:14 POC Glucose (mg/dL) 92 Urine Color Yellow Urine Appearance Clear Urine pH 6.0 Ur Specific Bethany 1.015 Urine Protein Negative Urine Glucose (UA) Negative Urine Ketones Negative Urine Blood Negative Urine Nitrate Negative Urine Bilirubin Negative Urine Urobilinogen 0.2 Ur Leukocyte Esterase Trace H Urine RBC 0 - 2 Urine WBC 1 - 3 Ur Epithelial Cells 0 - 2 Urine Bacteria Mod Assessment & Plan - Assessment and Plan (Free Text) Assessment: 66 year old female with history of COPD,HTN,diverticulitis and anxiety who is admitted with hypokalemia,HTN and deleruin. The patient is alert and oriented. She denies pain or feeling anxious today. She is concerned about her loss of memory regarding the time frame leading up to her admission. She states " I don't remember what happened or how I got here ". She lives independently and is able to perform all ADL's. She states that she has bouts of diarrhea and that when her stomach "acts up" it is difficult for her to leave her apartment. She is afraid she will have a problem when she is out in public. I asked if there were family members who she can rely on. She states her son is her POA but he is often away and sometimes difficult to reach. She is estranged from her daughter but has a good relationship with her ex son in law and granddaughter. She states that her granddaughter will occasionally stay with her. I explained the purpose of an advanced directive and naming a health care proxy. Also explained benefits and burdens of CPR/aggressive resuscitation. She is open to completing an Advance Directive, wants some time to think things through. Psychosocial support given. Time spent in discussion regarding goals of care and advance care planning 30 minutes Plan: Palliative support Advance care planning
[2017-04-21 17:38] VITALS: RESP 20
--- NOTE | 2017-04-21 21:14 | PN ---
DATE: SUBJECTIVE: The patient is 66-year-old female, not known previous psychiatric history. The patient has history of deliriums in the past, questionable history of dementia. This time, the patient was admitted on the medical side for evaluation of altered mental status. The patient was found confused in her apartment building. The patient was seen initially yesterday. This commercial underwriter is following the patient up today. The patient presented much better today. The patient was able to recognize this commercial underwriter. The patient said that right now she feels normal herself. The patient was kind of in distress that she was not able to remember two days of period when she was confused. The patient was found to be alert and oriented in self, time, and place. The patient seems to be less confused. The patient said that she has episodes of depression and that is why she requested to be seen by psychiatrist in the community. The patient said that she would be interested to go and follow up with outpatient psychiatrist and she is willing to have therapist as well. This commercial underwriter provided the patient with information of Dr. Jules Rush and address as well as telephone. The patient was appreciated. Besides that, vital signs reviewed, seems to be stable. Medications reviewed. The patient did not require any Seroquel overnight time because the patient was not agitated and not confused, labs reviewed. MENTAL STATUS EXAM: As this commercial underwriter described above. The patient was alert and oriented, pleasant and cooperative, intermittent eye contact. Speech was normal rate, but low volume. Mood described as sometimes I feel anxious. Affect was constricted, but reactive. Mood congruent. Thought process was coherent and goal directed. Thought content, the patient denied visual, auditory, or tactile hallucinations.. Denied paranoid ideation. The patient denied thoughts of harming herself or others. Denied intent or plan. Insight and judgment are fair. Impulses are better controlled. IMPRESSION: Delirium is improving. This commercial underwriter doubt that the patient has dementia because the patient was able to learn new information. The patient was alert and oriented in self, time and place. The patient was in distress that she had episodes of confusion. This commercial underwriter doubt that the patient has Alzheimer's dementia. PLAN: The patient was educated to take medication as it was prescribed. The patient said that she was taking tramadol which could give the patient confusion. The patient also might benefit from following up with outpatient psychiatrist. The patient is willing to follow up with Dr. Jules Rush here in [place]. This commercial underwriter also has impression that advance directives needs to be as discussed with the patient and the patient said it is very hard to make decision at this time. The patient promised that she will think for in the future. Meanwhile, the patient is doing much better. This commercial underwriter will sign off. Should you have any questions give me a call back. The patient should not be discharged on Seroquel. It has to be discontinued. Thank you very much for letting me to participate in care of your patient. Kristel Kimabll MD
--- NOTE | 2017-04-22 07:00 | DS ---
HISTORY OF PRESENT ILLNESS: This is a 66-year-old female who came into the hospital with changes in her mental status. The patient was admitted. She had full evaluation with blood work, CAT scan, and chest x-ray, no specific etiology was found. I believe that the patient had delirium episode as an outpatient. She is on one-to-one. She had improvement in her symptoms. She is alert and awake. She knows where she is. She is able to respond appropriately. She does not recall the reason for her admission. She is able to ambulate. She has no complaints of any headaches or dizziness. No nausea. No vomiting. PHYSICAL EXAMINATION: VITAL SIGNS: Temperature is 98.4, pulse of 61, blood pressure is 110/53, respirations 20, and O2 saturation 94%. GENERAL: The patient is lying in bed, flat, comfortable. HEENT: No oral lesion. Anicteric sclerae. Moist mucosa. NECK: No JVD, adenopathy, or thyromegaly. CARDIOVASCULAR: S1 and S2, regular. No murmurs, rubs, or gallops. LUNGS: Clear to auscultation bilaterally. No wheeze, rales, or rhonchi. ABDOMEN: Bowel sounds are positive, soft, nontender and nondistended. EXTREMITIES: No cyanosis, clubbing or edema. ASSESSMENT: 1. Delirium, improved. 2. Chronic obstructive pulmonary disease. 3. Hypertension. 4. Anxiety. 5. Hypokalemia. PLAN: The patient is on Aricept. The patient want to continue with Brovana. She is on Singulair. She is also getting Xanax as needed. We will discharge the patient to home. CONDITION: Stable. ACTIVITIES: Increase as tolerated. Sanchez Lino MD
[2017-04-22] MEDS: Arformoterol 15 mcg/2 ml Inh Sol IH SCH (07:15)
[2017-04-22] MEDS: Budesonide 0.5 mg/2 ml Inhal Susp UD IH SCH (07:15)
[2017-04-22 07:24] VITALS: BP 123/72; PULSE 58; TEMP 99.1; O2SAT 96
== END 2017-04-22 11:17 | disposition home or self-care (01) | DRG 948 ==
LOC: ED 00:11 → ERH 04:52 → 3RSO 13:49 → 5RNO 04-19 16:17 → OBSVTOIN 04-19 16:22
PROVIDERS: ADMIT Internal Medicine Nephrology; ATTEND Internal Medicine Nephrology
DX: R41.0 Disorientation, unspecified (principal); F03.90 Unspecified dementia, unspecified severity, without behavioral disturbance, psychotic disturbance, mood disturbance, and anxiety; J44.9 Chronic obstructive pulmonary disease, unspecified; E87.6 Hypokalemia; F32.89 Other specified depressive episodes; F41.9 Anxiety disorder, unspecified; I10 Essential (primary) hypertension; K44.9 Diaphragmatic hernia without obstruction or gangrene; Z63.8 Other specified problems related to primary support group; Z79.899 Other long term (current) drug therapy; Z87.891 Personal history of nicotine dependence; Z91.83 Wandering in diseases classified elsewhere; Z87.440 Personal history of urinary (tract) infections; R40.2412 Glasgow coma scale score 13-15, at arrival to emergency department; Z87.19 Personal history of other diseases of the digestive system

== ENCOUNTER 2017-07-30 14:42 | Emergency (ER) | payer MEDICARE, BC ==
[2017-07-30 14:53] VITALS: BMI 17.9
--- NOTE | 2017-07-30 15:39 | ED PDOC ---
Arrival/HPI - General Time Seen by Provider: 07/30/17 15:11 Historian: Patient - History of Present Illness Narrative History of Present Illness (Text): 07/30/17 15:26 This 66 yo female presents to this Emergency department complaining of feeling fatigue for several days. Patient noted she has been sleeping "too many hours" . She admits taking Xanax 3 times a day for anxiety. Patient denies zhu, fever , sob, cp, abdominal pain, SI, HI, or urinary symptoms. Time/Duration: Other (see hpi) Context: Home Past Medical History - Provider Review Nursing Documentation Reviewed: Yes - Infectious Disease Hx of Infectious Diseases: None - Cardiac Hx Hypertension: Yes - Pulmonary Hx Chronic Obstructive Pulmonary Disease (COPD): Yes - Neurological Hx Neurological Disorder: Yes Hx Dementia: Yes - HEENT Hx HEENT Disorder: No - Renal Hx Renal Disorder: No - Endocrine/Metabolic Hx Endocrine Disorders: No - Hematological/Oncological Hx Cancer: No - Integumentary Hx Dermatological Disorder: No - Musculoskeletal/Rheumatological Hx Falls: Yes - Gastrointestinal Hx Gastrointestinal Disorders: Yes (COLITIS,ENTERITIS,CONSTIPATION,RECTAL BLEED, BOWEL OBSTRUCTION,HEMORRHOIDS) - Genitourinary/Gynecological Hx Genitourinary Disorders: Yes (UTI) - Psychiatric Hx Psychophysiologic Disorder: Yes Hx Anxiety: Yes Hx Depression: Yes Hx Emotional Abuse: No Hx Physical Abuse: No Hx Substance Use: No - Anesthesia Hx Anesthesia: Yes Hx Anesthesia Reactions: No Hx Malignant Hyperthermia: No - Suicidal Assessment Feels Threatened In Home Enviroment: No Family/Social History - Physician Review Nursing Documentation Reviewed: Yes Family/Social History: Other (noncontributory) Smoking Status: Former Smoker Hx Alcohol Use: No Hx Substance Use: No Allergies/Home Meds Allergies/Adverse Reactions: Allergies No Known Allergies Allergy (Verified 02/15/17 17:18) Home Medications: Home Meds Medication Instructions Recorded Confirmed Alprazolam [Xanax] 0.5 tab PO BID 07/30/17 07/30/17 Alprazolam [Xanax] 1 tab PO HS PRN 07/30/17 07/30/17 Desvenlafaxine Succinate [Pristiq] 1 tab PO DAILY 07/30/17 07/30/17 Fluticasone/Salmeterol 250/50 1 puff IH DAILY 07/30/17 07/30/17 [Advair Diskus 250/50] amLODIPine [Norvasc] 1 tab PO DAILY 07/30/17 07/30/17 Review of Systems - Review of Systems Constitutional: Fatigue. absent: Weight Change, Fevers Eyes: Normal ENT: Normal Respiratory: Normal Cardiovascular: Normal Gastrointestinal: Normal. absent: Abdominal Pain, Nausea, Vomiting Genitourinary Female: Normal Musculoskeletal: Normal Skin: Normal Neurological: Dizziness, Other (generalized weakness) Endocrine: Normal Hemo/Lymphatic: Normal Psychiatric: Normal Physical Exam Vital Signs Temp Pulse Resp BP Pulse Ox 07/30/17 20:26 72 18 121/78 99 07/30/17 16:09 97.9 F 65 18 115/62 97 Temperature: Afebrile Blood Pressure: Normal Pulse: Regular Respiratory Rate: Normal Appearance: Positive for: Well-Appearing, Non-Toxic, Comfortable Pain Distress: None Mental Status: Positive for: Alert and Oriented X 3 - Systems Exam Head: Present: Atraumatic, Normocephalic Pupils: Present: PERRL Extroacular Muscles: Present: EOMI Conjunctiva: Present: Normal Mouth: Present: Moist Mucous Membranes Neck: Present: Normal Range of Motion Respiratory/Chest: Present: Clear to Auscultation, Good Air Exchange. No: Respiratory Distress, Accessory Muscle Use, Wheezes, Retracting, Rhonchi Cardiovascular: Present: Regular Rate and Rhythm, Normal S1, S2. No: Murmurs Abdomen: Present: Normal Bowel Sounds. No: Tenderness, Distention, Peritoneal Signs, Rebound, Guarding Back: Present: Normal Inspection. No: CVA Tenderness Upper Extremity: Present: Normal Inspection. No: Cyanosis, Edema Lower Extremity: Present: Normal Inspection. No: Edema Neurological: Present: GCS=15, CN II-XII Intact, Speech Normal Skin: Present: Warm, Dry, Normal Color. No: Rashes Psychiatric: Present: Alert, Oriented x 3, Normal Insight, Normal Concentration. No: Suicidal Ideation, Homicidal Ideation, Delusional, Hallucinations, Intoxicated Medical Decision Making ED Course and Treatment: 07/30/17 20:13 Re-evaluation. Patient feels better. Discussed results and plan with patient who expresses understanding. All questions answered and there is agreement with the plan to discharge home with instructions. Patient stable for discharge. Return if symptoms persist or worsen. Re-evaluation Time: 20:13 Reassessment Condition: Re-examined, Improved - Lab Interpretations Lab Results: 07/30/17 13:40 07/30/17 13:40 Lab Results 07/30/17 13:40: Sodium 143, Potassium 3.3 L, Chloride 104, Carbon Dioxide 30, Anion Gap 12, BUN 17, Creatinine 1.0, Est GFR ( Amer) > 60, Est GFR (Non- Af Amer) 55, Random Glucose 101, Calcium 10.1, Total Bilirubin 0.9, AST 24, ALT 25, Alkaline Phosphatase 90, Lactate Dehydrogenase 467, Total Creatine Kinase 96 , Troponin I < 0.01, Total Protein 6.9, Albumin 4.1, Globulin 2.8, Albumin/ Globulin Ratio 1.5 07/30/17 13:40: PT 11.2, INR 0.98, APTT 28.6 07/30/17 13:40: WBC 5.4 D, RBC 4.59, Hgb 13.8 D, Hct 41.2, MCV 89.8, MCH 30.1 , MCHC 33.5, RDW 13.5, Plt Count 312, MPV 9.2, Gran % 59.4, Lymph % (Auto) 30.9 , [place] % (Auto) 6.1 H, Eos % (Auto) 1.9, Baso % (Auto) 1.7, Gran # 3.21, Lymph # (Auto) 1.7, [place] # (Auto) 0.3, Eos # (Auto) 0.1, Baso # (Auto) 0.09 I have reviewed the lab results: Yes Interpretation: No clinic. lab abnormalty - RAD Interpretation Narrative RAD Interpretations (Text): 07/30/17 20:12 PROCEDURE: CT HEAD WITHOUT CONTRAST. HISTORY: generalized weakness COMPARISON: 04/18/2017 TECHNIQUE: Axial computed tomography images were obtained through the head/brain without intravenous contrast. Radiation dose: Total exam DLP = 875.88 mGy-cm. This CT exam was performed using one or more of the following dose reduction techniques: Automated exposure control, adjustment of the mA and/or kV according to patient size, and/or use of iterative reconstruction technique. FINDINGS: HEMORRHAGE: No intracranial hemorrhage. BRAIN: No mass effect or edema. Minimal atrophy. Moderate patchy and confluent white matter lucency in the periventricular, deep and subcortical white matter, consistent with microvascular ischemic change. No evidence of acute infarct. Remote bilateral basal ganglia lacunar infarcts. VENTRICLES: Unremarkable. No hydrocephalus. CALVARIUM: Unremarkable. PARANASAL SINUSES: Unremarkable as visualized. No significant inflammatory changes. MASTOID AIR CELLS: Unremarkable as visualized. No inflammatory changes. OTHER FINDINGS: None. IMPRESSION: No intracranial mass, hemorrhage or evidence of acute infarct. Age related involutional change. No interval change from 04/18/2017. Radiology Orders: 07/30/17 15:28 HEAD W/O CONTRAST [CT] Stat CHEST PORTABLE [RAD] Stat - EKG Interpretation Interpreted by ED Physician: Yes (NSR @ [address] changes) Type: 12 lead EKG Comparison: No previous EKG avail. - Medication Orders Current Medication Orders: Discontinued Medications Sodium Chloride (Sodium Chloride 0.9%) 500 mls @ 999 mls/hr IV .Q31M STA Stop: 07/30/17 19:07 Last Admin: 07/30/17 19:13 Dose: 999 mls/hr eMAR Start Stop Document 07/30/17 19:13 GMD (Rec: 07/30/17 19:13 GMD [id number]) Intravenous Solution Start Date 07/30/17 Start Time 19:13 End Date 07/30/17 End time 19:43 Total Infusion Time 30 Potassium Chloride (K-Dur 20 Meq Er Tab) 40 meq PO STAT STA Stop: 07/30/17 17:40 Last Admin: 07/30/17 17:49 Dose: 40 meq Disposition/Present on Arrival - Present on Arrival Any Indicators Present on Arrival: No History of DVT/PE: No History of Uncontrolled Diabetes: No Urinary Catheter: No History Surgical Site Infection Following: None - Disposition Have Diagnosis and Disposition been Completed?: Yes Diagnosis: Feeling tired Disposition: HOME/ ROUTINE Disposition Time: 20:14 Patient Plan: Discharge Condition: GOOD Discharge Instructions (ExitCare): Fatigue (DC) Additional Instructions: Call private doctor for follow up visit in 1-2 days. Take medication as instructed. Return to emergency if symptoms worsen Referrals: Sanchez Lino MD [Primary Care Provider] - Follow up with primary Forms: [employer] (Bulgarian)
[2017-07-30 16:10] VITALS: RESP 18; TEMP 97.9
[2017-07-30 16:14] LABS: BASO # 0.09 K/mm3 (0.0-2.0); BASO % 1.7 % (0.0-3.0); EOS # 0.1 (0.0-0.7); EOS % 1.9 % (1.5-5.0); GRAN # 3.21 (1.4-6.5); GRAN % 59.4 % (50.0-68.0); HEMOGLOBIN 13.8 g/dL (12.0-16.0); LYMPH # 1.7 (1.2-3.4); LYMPH % 30.9 % (22.0-35.0); MEAN CELL VOLUME 89.8 fl (80.0-105.0); MEAN CORPUSCULAR HEMOGLOBIN 30.1 pg (25.0-35.0); MEAN CORPUSCULAR HGB CONC 33.5 g/dl (31.0-37.0); MEAN PLATELET VOLUME 9.2 fl (7.0-11.0); MONO # 0.3 (0.1-0.6); MONO % 6.1 % (1.0-6.0); RBC 4.59 10^6/uL (3.5-6.1); RED CELL DISTRIBUTION WIDTH 13.5 % (11.5-14.5); WHITE BLOOD COUNT 5.4 10^3/ul (4.5-11.0)
[2017-07-30 16:20] LABS: ALB/GLOB RATIO 1.5 (1.1-1.8); ALBUMIN 4.1 g/dL (3.0-4.8); ALT/SGPT 25 U/L (7-56); AST/SGOT 24 U/L (14-36); BLOOD UREA NITROGEN 17 mg/dL (7-21); CALCIUM 10.1 mg/dL (8.4-10.5); GFR AFRICAN-AMERICAN > 60; GFR NON-AFRICAN AMERICAN 55
[2017-07-30 16:26] LABS: INR 0.98 (0.93-1.08); PARTIAL THROMBOPLASTIN TIME 28.6 Seconds (25.1-36.5); PROTHROMBIN TIME 11.2 SECONDS (9.4-12.5)
[2017-07-30 16:32] LABS: TROPONIN I < 0.01 ng/mL
--- NOTE | 2017-07-30 17:11 | RAD ---
HISTORY: fatigue COMPARISON: 04/18/2017 and 06/24/2016 06/24/2016 CT abdomen and pelvis documenting a diaphragmatic hernia. FINDINGS: LUNGS: Findings right base more likely related to known diaphragmatic hernia at the than infiltrate. PLEURA: No significant pleural effusion identified, no pneumothorax apparent. CARDIOVASCULAR: Normal. OSSEOUS STRUCTURES: No significant abnormalities. 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 OTHER FINDINGS: None. IMPRESSION: No active disease. If pneumonia is suspected particularly as relates a finding at the right base CT scan given the known diaphragmatic hernia is recommended
[2017-07-30] MEDS ORDERED: Potassium Chloride 20 mEq ER Tab PO STA (17:39)
--- NOTE | 2017-07-30 17:46 | CT ---
PROCEDURE: CT HEAD WITHOUT CONTRAST. HISTORY: generalized weakness COMPARISON: 04/18/2017 TECHNIQUE: Axial computed tomography images were obtained through the head/brain without intravenous contrast. Radiation dose: Total exam DLP = 875.88 mGy-cm. This CT exam was performed using one or more of the following dose reduction techniques: Automated exposure control, adjustment of the mA and/or kV according to patient size, and/or use of iterative reconstruction technique. FINDINGS: HEMORRHAGE: No intracranial hemorrhage. BRAIN: No mass effect or edema. Minimal atrophy. Moderate patchy and confluent white matter lucency in the periventricular, deep and subcortical white matter, consistent with microvascular ischemic change. No evidence of acute infarct. Remote bilateral basal ganglia lacunar infarcts. VENTRICLES: Unremarkable. No hydrocephalus. CALVARIUM: Unremarkable. PARANASAL SINUSES: Unremarkable as visualized. No significant inflammatory changes. MASTOID AIR CELLS: Unremarkable as visualized. No inflammatory changes. OTHER FINDINGS: None. IMPRESSION: No intracranial mass, hemorrhage or evidence of acute infarct. Age related involutional change. No interval change from 04/18/2017.
[2017-07-30] MEDS ORDERED: Sodium Chloride 0.9% 500 ML IV STA (18:37)
[2017-07-30 20:26] VITALS: BP 121/78; PULSE 72; O2SAT 99
--- NOTE | 2017-07-31 10:33 | CARD ---
APPROVED REPORT EKG Measurement Heart [id number] <Conclusion> Normal sinus rhythm Nonspecific T wave abnormality Leftward axis No change
== END 2017-07-30 20:26 | disposition home or self-care (01) ==
LOC: ED 14:42
DX: R53.83 Other fatigue (principal); I10 Essential (primary) hypertension; Z87.891 Personal history of nicotine dependence
CPT/HCPCS: 70450; 71045; 80053; 82550; 83615; 84484; 85025; 85610; 85730; 93005; 99285; J7040